=== PATIENT | male | born 2000 | race Caucasian/White ===

== ENCOUNTER 2023-09-07 18:31 | Emergency (ER) | payer BC, SELFPAY ==
[2023-09-07 18:44] VITALS: BP 136/91; PULSE 82; RESP 18; TEMP 36.7; O2SAT 98; BMI 21.7
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
[2023-09-07 18:58] LABS: Microscopic, Urine URINE MICROSCOPIC (MICROSCOPIC)
[2023-09-07 18:59] LABS: Appearance,Urine CLEAR (Clear); Blood, Urine Negative (Negative); Color,Urine YELLOW (Yellow); Glucose,Urine (UA) Negative (Negative); Ketones,Urine TRACE (Negative); Leukocyte Esterase,Urine Negative (Negative); Nitrate,Urine Negative (Negative); Protein,Urine Negative (Negative); Specific Gravity, Urine >= 1.030 (1.005-1.030)
[2023-09-07 19:04] LABS: Bilirubin,Urine 1+ (Negative)
[2023-09-07 19:12] LABS: Bacteria,Urine 1+ /lpf; Calcium Oxalate Crystals,Urine 1+ /lpf; Mucus,Urine 1+ /lpf; Squamous Epithelial Cell,Urine Occasional #/hpf (0-5)
--- NOTE | 2023-09-07 19:12 | PC.NURSE ---
post void residual is 9ml
[2023-09-07 20:11] VITALS: BP 121/70; PULSE 76; RESP 19; TEMP 36.7; O2SAT 100
== END 2023-09-07 20:15 | disposition home or self-care (01) ==
PROVIDERS: Emergency Provider Emergency Medicine; PCP Nurse Practitioner
DX: N39.41 Urge incontinence (principal); N52.9 Male erectile dysfunction, unspecified; F41.1 Generalized anxiety disorder; F33.9 Major depressive disorder, recurrent, unspecified
CPT/HCPCS: 81001; 99283

== ENCOUNTER 2023-09-24 10:35 | Outpatient (CLI) | payer BC, SELFPAY | END 2023-09-24 23:59 | disposition home or self-care (01) | LOC: RT 10:36 | PROVIDERS: PCP Nurse Practitioner Family; Visit Provider Nurse Practitioner Family | DX: R00.2 Palpitations (principal) | CPT/HCPCS: 93225 ==

== ENCOUNTER 2024-05-15 20:46 | Emergency (ER) | payer BC, SELFPAY ==
[2024-05-15 20:47] VITALS: BP 138/82; PULSE 92; RESP 16; TEMP 36.6; O2SAT 98; BMI 25.0
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
--- NOTE | 2024-05-15 21:21 | US_ITS ---
PROCEDURE INFORMATION: Exam: US Scrotum and US Duplex Artery and Vein, Scrotum, Complete Exam date and time: 05/15/2024 9:45 PM Age: 24 years old Clinical indication: Scrotum pain; Additional info: Left testicular swelling and pain TECHNIQUE: Imaging protocol: Real-time ultrasound of the scrotum. Real-time duplex ultrasound scan of the arterial and venous flow of the scrotum with B-mode, color Doppler flow and spectral waveform analysis. Complete exam. Duplex exam was performed to evaluate for torsion and other vascular conditions. COMPARISON: No relevant prior studies available. FINDINGS: Right testicle: Normal. No mass. Normal arterial and venous waveforms on Doppler. No torsion. Right testicle measures 4.1 x 2.2 x 2.9 cm. Left testicle: No mass. Normal arterial and venous waveforms on Doppler. No torsion. Possible mild increase in vascularity to the left testicle and epididymis compared to the right. Left testicle measures 3.5 x 2.0 x 3.3 cm. A non masslike linear echogenicity noted within the left testicle measuring 4 mm in length by 1 mm in thickness may reflect a macro calcification or some other prominent reflective interface. Small left varicocele. Epididymides: A 3 mm mildly complex epididymal cyst seen in the head of the left epididymis. Right epididymis unremarkable. Scrotum/soft tissues: Moderate-sized left sided varicocele. IMPRESSION: 1. Mildly increased blood flow of the left epididymis and testicle that might reflect epididymal orchitis in the proper clinical setting. 2. Left varicocele and small complex epididymal cyst. 3. Incidental linear echogenicity in the left testicle may reflect a macro calcification or some other reflective interface.
--- NOTE | 2024-05-15 21:26 | HMH.ITSTN ---
Ultrasound called in at this time
--- NOTE | 2024-05-15 21:53 | PC.NURSE ---
pt going with RAD
--- NOTE | 2024-05-15 22:17 | PC.NURSE ---
pt returned from ultrasound
[2024-05-15] MEDS: LIDOCAINE 1% 5ML PF VIAL IM (23:06)
[2024-05-15] MEDS: cefTRIAXone 500MG VIAL 500 MG IM (23:06)
--- NOTE | 2024-05-15 23:09 | PC.NURSE ---
collected urine sample sent to lab.
[2024-05-15 23:13] LABS: Appearance,Urine CLEAR (Clear); Blood, Urine Negative (Negative); Color,Urine YELLOW (Yellow); Glucose,Urine (UA) Negative (Negative); Ketones,Urine Negative (Negative); Leukocyte Esterase,Urine Negative (Negative); Microscopic, Urine URINE MICROSCOPIC (MICROSCOPIC); Nitrate,Urine Negative (Negative); PH,Urine 6.5 (5.0-8.5); Protein,Urine 1+ (Negative); Specific Gravity, Urine >= 1.030 (1.005-1.030)
[2024-05-15 23:20] LABS: Bilirubin,Urine Negative (Negative)
[2024-05-15 23:27] LABS: Bacteria,Urine 2+ /lpf; Mucus,Urine 4+ /lpf; WBC,Urine TNTC #/hpf (0-3)
[2024-05-15 23:30] VITALS: BP 140/79; PULSE 77; RESP 17; TEMP 36.7; O2SAT 96
== END 2024-05-15 23:31 | disposition home or self-care (01) ==
PROVIDERS: Emergency Provider Student in an Organized Health Care Education/Training Program; PCP Nurse Practitioner Family
DX: N45.3 Epididymo-orchitis (principal); N50.812 Left testicular pain
CPT/HCPCS: 76870; 81001; 87086; 96372; 99283; J0696

== ENCOUNTER → 2024-08-10 07:28 | Outpatient (CLI) | payer BC, SELFPAY | LOC: SL 07:30 | PROVIDERS: PCP Specialist; Visit Provider Specialist | DX: G47.30 Sleep apnea, unspecified (principal) | CPT/HCPCS: G0399 ==

== ENCOUNTER 2024-11-18 17:38 | Emergency (ER) | payer BC, SELFPAY ==
--- OUTSIDE RECORDS SUMMARY | 2024-09-04 05:01 | XMS_ITS | Continuity of Care Document ---
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 Name Role Phone Zafar MSN, WOOL SAMPLER, [place] Unavailable Unavai lable Allergies, Adverse Reactions, Alerts Substance Reaction Status Criticality No Known Allergies Active No Inform ation Medications Medication Instructions Dosage Effective Dates (start - stop) Status Comments Prozac 20 mg capsule take 1 capsule by o ral route every day in the morning 20 MG - Active tenofovir disoproxil fumarate 300 mg tablet take 1 tablet by oral route every day with a meal 300 MG - Active buspirone 10 mg tablet take 1 tablet by oral route 3 times every day 10 MG - Active tadalafil 5 mg tablet take 1 tablet by o ral route every day 5 MG - Active VITAMIN D2 50,000IU (ERGO) CAP RX TAKE 1 CAPSULE BY MOUTH EVERY WEEK ON SAME DAY EACH WEEK - Active Advance Directives Directive Yes / No Effective Date File Name No Information Encounters Encounter Description Practice Location Reason(s) For Visit Diagnoses Date Provider [facility], [address] [place], [address], [place] tel:[phone] [facility] MARIUM GUILLERMO No Information Zafar Toledo. [address] [place] [address], [id number] , . [phone] [facility], [address] [place], [address], tel:[phone] [facility] f/u medication (chief complaint) Generalized Anxiety DisorderMajor depressive disorder, recurrent, mildBody mass index [BMI] 25.0-25.9, adult Aug- 5 Stephen Paris. [address], [place], [id number] , . tel: [phone] [facility], [address] [place] [address], [facility], tel:[phone] [facility] [place] Follow up on Medication (chief complaint) Body mass index [BMI] 24.0-24.9, adultGeneralized Anxiety DisorderMajor depressive disorder, recurrent, mildVitamin B12 deficiencyEncounter for HIV pre-exposure prophylaxis 5 Stephen Paris. [address], [place], [id number] , . tel: [phone] [facility], [address] [place] [address], [facility], tel:[phone] [facility] [place] FMLA papers/accomm odation request (chief complaint) Stress, not elsewhere classifiedGeneralized Anxiety DisorderEncounter for issue of other medical certificate 5 Stephen Paris. [address], [place], [id number] , . tel: [phone] [address], [facility], tel:[phone] [facility] [place] fasting labs (chief complaint)anx iety issues (chief complaint) Vitamin B12 deficiencyGeneralized Anxiety DisorderMajor depressive disorder, recurrent, mildEncounter for immunizationBody mass index [BMI] 25.0-25.9, adult 5 Stephen Paris. [address], [place], [id number] , . tel: [phone] [facility], [address] [place] [address], [address], [place] tel:[phone] [facility] [place] No Information 4 Stephen Paris. [address], [place], [id number] , [place]. tel:[phone] [facility], [address] [place] [address], [facility], tel:[phone] [facility] No Information 4 Albert Moncada. [address] [place], [id number] , [place]. tel:[phone] [facility], [address] [place] [address], [facility], tel:[phone] [facility] [place] Fatigue (chief complaint)Con cerned about sleep apnea. (chief complaint)sor e throat (chief complaint) FatigueApnea, not elsewhere classifiedPharyngitisS noringBody mass index [BMI] 24.0-24.9, adultEncounter for screening for COVID-19 4 Stephen Paris. [address], [place], [id number] , [place]. tel:[phone] [facility], [address] [place] [address], [facility], [place] tel:[phone] [facility] [place] B12 Injection (chief complaint) Vitamin B12 deficiency 4 Stephen Paris. [address], [place], [id number] , [place]. tel:[phone] [facility], [address] [place] [address], [facility], [place] tel:[phone] [facility] [place] B12 INJECTION (chief complaint) Vitamin B12 deficiency 0 4 Stephen Paris. [address], [place], [id number] , [place]. tel:[phone] [facility], [address] [place] [address], [facility], tel:[phone] [facility] [place] b12 injection (chief complaint) Vitamin B12 deficiency 4 Stephen Paris. [address], [place], [id number] , . tel: [phone] [facility], [address] [place] [address], [facility], tel:[phone] [facility] [place] F/u on testing (chief complaint)b12 injection # 3 of 6 (chief complaint)kym h on rt wrist (chief complaint) Body mass index [BMI] 22.0-22.9, adultTachycardia, unspecifiedVitamin B12 deficiencyRash - 4 Stephen Paris. [address], [place], [address] [place] [address] , . tel: [phone] [facility], [address] [place] [address], [facility], tel:[phone] [facility] [place] B12 INJECTION (chief complaint) Vitamin B12 deficiency 4 Stephen Paris. [address] [place] [address], [id number] , . tel: [phone] [facility], [address] [place] [address], [facility], tel:[phone] [facility] [place] f/u labs (chief complaint) PalpitationsVitamin B12 deficiencyBody mass index [BMI] 22.0-22.9, adultGeneralized Anxiety Disorder Aug-3 0- 4 Stephen Paris. [address] [place] [address], [id number] , . tel: [phone] [facility], [address] [place] [address], [facility], tel:[phone] [facility] Establishing Care (chief complaint) Extreme povertyUnemployment, unspecifiedEncounter for screening for diseases of the blood and blood-forming organs and certain disorders involving the immune mechanismBody mass index [BMI] 21.0-21.9, adultGeneralized Anxiety DisorderMajor depressive disorder, recurrent, mildEncounter for screening for diabetes mellitusEncounter for screening for human immunodeficiency virus [HIV]Encounter for screening for other viral diseases 4 Milangabriela Moncada. [address] [place], [id number] , [place]. [phone] Family History Family Member Type Diagnosis Age At Onset Maternal grandmother Problem Seasonal Allergies a nd Parkinson's Disease Father Problem Substance Abuse Mother Problem Substance Abuse, Fibromyalgia, Gout,Brain Tumor, COPD, CHF Father Problem Alive and well Maternal grandfather Problem Heart Issues, Aneury sm in abdomin Paternal grandfather Problem Alive and well Maternal grandmother Problem Alive and well Paternal grandfather Problem Large Hernia Mother Problem Arthritis Father Problem Hernia Maternal grandfather Problem Alive and well Immunizations Vaccine Date Status Comments SARS-COV-2 (COVID-19) vaccin e, mRNA, spike protein, LNP, bivalent booster, preservative free, 50 mcg/0.5 mL or 25 mcg/0.25 mL dose (Moderna) refused Source: New I mmunization Record Influenza virus vaccine, trivalent (IIV3), split virus, preservative free, 0.5 mL dosage, for intramuscular use administered Source: Ne w Immunization Record COVID-19 mRNA (PFR) administered Source: Other Registry COVID-19 mRNA (PFR) administered Source: Other Registry Varicella administered Source: Other R egistry Tdap, Adsorbed administered Source: Other Registry MCV4 UF administered Source: Other R egistry MMR administered Source: Other R egistry DTaP, UF administered Source: Other R egistry Polio-IPV administered Source: Other R egistry Varicella administered Source: Other R egistry DTaP, UF administered Source: Other R egistry Hib-Hep B (Comvax) administered Source: O ther Registry Polio-IPV administered Source: Other R egistry MMR administered Source: Other R egistry DTaP, UF administered Source: Other R egistry Hib-Hep B (Comvax) administered Source: O ther Registry Polio-IPV administered Source: Other R egistry DTaP, UF administered Source: Other R egistry Hib-Hep B (Comvax) administered Source: O ther Registry Polio-IPV administered Source: Other R egistry DTaP, administered Source: Other R egistry Payers Payer name Insurance type Covered constitution party ID Shayne quinonez(s) [place] [employer] [place] BL [id number] [facility]- Medicaid [place] [id number] [facility]- Medicaid Aetna Wrap Payer [id number] [employer] [facility] [id number] [facility]- Medicaid [employer] BL [id number] [facility]- Medicaid [employer] Wrap Payer [id number] 1 [employer] [facility] [id number] [facility]- Medicaid [employer] BL [id number] [facility]- Medicaid [place] Wrap Payer [id number] 1 Social History Type Description Quantity Date Captured Comments Alcohol Use Details Unknown Caffeine Use Details Unknown Tobacco Use Status No Information Smoking Status No Information Sex Male Sexual Orientation Bisexual Gender Identity Male Chief Complaint And Reason For Visit No Information Plan Of Treatment Date Type Action Status Goal CMP. Due on due Goal Diabetes screening. Due on due Goal Vitamin B12. Due on 026 due Goal Hepatitis C Screening due Goal Depression screening. Due on due Goal Follow up Plan f or abnormal BMI (Less than 18.5, greater than 25). Due on due Goal CBC. Due on due Goal Influenza vaccine. Due on due Goal Drug Abuse Scree sumeet Test (DAST-10). Due on due Goal Tobacco screening. Due on due Goal Generalized Anxi ety Disorder - 7 (NICOLE-7). Due on due Goal Tobacco Use Cess ation Counseling. Due on due Goal HIV screen due Goal Unhealthy drug use screening due Goal Tobacco Use Screening. Due o n due Goal Obtain Height, Weight, and B HI. Due on due Goal Lipid panel. Due on due Goal Vitamin D. Due on due Goal Lipid panel. Due on due Goal Hepatitis C Screening due Goal CBC. Due on due Goal Follow up Plan f or abnormal BMI (Less than 18.5, greater than 25). Due on due Goal Tobacco screening. Due on due Goal Vitamin D. Due on due Goal Tobacco Use Screening. Due o n due Goal Influenza vaccine. Due on due Goal Obtain Height, Weight, and B HI. Due on due Goal Depression screening. Due on due Goal Diabetes screening. Due on due Goal Drug Abuse Scree sumeet Test (DAST-10). Due on due Goal Unhealthy drug use screening due Goal CMP. Due on due Goal Tobacco Use Cess ation Counseling. Due on due Goal Generalized Anxi ety Disorder - 7 (NICOLE-7). Due on due Goal Vitamin B12. Due on due Goal HIV screen due Goal Lifestyle education regardin g diet completed Goal Tobacco screening. Due on due Goal Vitamin B12. Due on due Goal Influenza vaccine. Due on due Goal Unhealthy drug use screening due Goal Vitamin D. Due on due Goal Lipid panel. Due on due Goal Follow up Plan f or abnormal BMI (Less than 18.5, greater than 25). Due on due Goal Hepatitis C Screening due Goal Tobacco Use Cess ation Counseling. Due on due Goal Generalized Anxi ety Disorder - 7 (NICOLE-7). Due on due Goal CBC. Due on due Goal Tobacco Use Screening. Due o n due Goal Depression screening. Due on due Goal Drug Abuse Scree sumeet Test (DAST-10). Due on due Goal Diabetes screening. Due on due Goal Obtain Height, Weight, and B HI. Due on due Goal HIV screen due Goal CMP. Due on due Goal Lifestyle education regardin g diet completed Goal CMP. Due on due Goal Vitamin B12. Due on due Goal Lipid panel. Due on due Goal Tobacco Use Cess ation Counseling. Due on due Goal Follow up Plan f or abnormal BMI (Less than 18.5, greater than 25). Due on due Goal Vitamin D. Due on due Goal Depression screening. Due on due Goal HIV screen due Goal Diabetes screening. Due on due Goal Tobacco Use Screening. Due o n due Goal Drug Abuse Scree sumeet Test (DAST-10). Due on due Goal Generalized Anxi ety Disorder - 7 (NICOLE-7). Due on due Goal Influenza vaccine. Due on due Goal Obtain Height, Weight, and B HI. Due on due Goal Unhealthy drug use screening due Goal CBC. Due on due Goal Hepatitis C Screening due Goal Tobacco Use Screening. Due o n due Goal Hepatitis C Screening due Goal Obtain Height, Weight, and B HI. Due on due Goal Vitamin D. Due on due Goal Follow up Plan f or abnormal BMI (Less than 18.5, greater than 25). Due on due Goal Vitamin B12. Due on 026 due Goal Drug Abuse Scree sumeet Test (DAST-10). Due on due Goal CMP. Due on due Goal Depression screening. Due on due Goal CBC. Due on due Goal Lipid panel. Due on due Goal HIV screen due Goal Generalized Anxi ety Disorder - 7 (NICOLE-7). Due on due Goal Unhealthy drug use screening due Goal Influenza vaccine. Due on due Goal Tobacco Use Cess ation Counseling. Due on due Goal Diabetes screening. Due on F due Goal Lifestyle education regardin g diet completed Goal Drug Abuse Scree sumeet Test (DAST-10). Due on due Goal Depression screening. Due on due Goal Lipid panel. Due on due Goal Unhealthy drug use screening due Goal HIV screen due Goal Vitamin B12. Due on 025 due Goal Generalized Anxi ety Disorder - 7 (NICOLE-7). Due on due Goal Vitamin D. Due on due Goal CBC. Due on due Goal Hepatitis C Screening due Goal Tobacco Use Cess ation Counseling. Due on due Goal CMP. Due on due Goal Tobacco Use Screening. Due o n due Goal Influenza vaccine. Due on Oc due Goal Diabetes screening. Due on A due Goal Obtain Height, Weight, and B HI. Due on due Goal Follow up Plan f or abnormal BMI (Less than 18.5, greater than 25). Due on due Goal Vitamin B12. Due on due Goal Lipid panel. Due on 039 due Goal Obtain Height, Weight, and B HI. Due on due Goal Influenza vaccine. Due on due Goal CBC. Due on due Goal Vitamin D. Due on due Goal Generalized Anxi ety Disorder - 7 (NICOLE-7). Due on due Goal Hepatitis C Screening due Goal Tobacco Use Screening. Due o n due Goal Follow up Plan f or abnormal BMI (Less than 18.5, greater than 25). Due on due Goal CMP. Due on due Goal Diabetes screening. Due on A due Goal Tobacco Use Cess ation Counseling. Due on due Goal Drug Abuse Scree sumeet Test (DAST-10). Due on due Goal Unhealthy drug use screening due Goal Depression screening. Due on due Goal HIV screen due Goal Lifestyle education regardin g diet completed Goal Influenza vaccine. Due on due Goal CBC. Due on due Goal Lipid panel. Due on 039 due Goal HIV screen due Goal Diabetes screening. Due on A due Goal Drug Abuse Scree sumeet Test (DAST-10). Due on due Goal CMP. Due on due Goal Follow up Plan f or abnormal BMI (Less than 18.5, greater than 25). Due on due Goal Unhealthy drug use screening due Goal Tobacco Use Screening. Due o n due Goal Depression screening. Due on due Goal Tobacco Use Cess ation Counseling. Due on due Goal Vitamin B12. Due on 025 due Goal Obtain Height, Weight, and B HI. Due on due Goal Hepatitis C Screening due Goal Vitamin D. Due on due Goal Generalized Anxi ety Disorder - 7 (NICOLE-7). Due on due Goal Tobacco Use Screening. Due o n due Goal Generalized Anxi ety Disorder - 7 (NICOLE-7). Due on due Goal CMP. Due on due Goal Unhealthy drug use screening due Goal Depression screening. Due on due Goal Follow up Plan f or abnormal BMI (Less than 18.5, greater than 25). Due on due Goal Obtain Height, Weight, and B HI. Due on due Goal Vitamin B12. Due on due Goal HIV screen due Goal Diabetes screening. Due on A due Goal Lipid panel. Due on due Goal Hepatitis C Screening due Goal CBC. Due on due Goal Influenza vaccine. Due on due Goal Vitamin D. Due on due Goal Drug Abuse Scree sumeet Test (DAST-10). Due on due Goal Tobacco Use Cess ation Counseling. Due on due Goal Diabetes screening. Due on A due Goal CMP. Due on due Goal Hepatitis C Screening due Goal Influenza vaccine. Due on due Goal Generalized Anxi ety Disorder - 7 (NICOLE-7). Due on due Goal Follow up Plan f or abnormal BMI (Less than 18.5, greater than 25). Due on due Goal Vitamin D. Due on due Goal HIV screen due Goal Drug Abuse Scree sumeet Test (DAST-10). Due on due Goal Tobacco Use Screening. Due o n due Goal Lipid panel. Due on due Goal Vitamin B12. Due on due Goal Unhealthy drug use screening due Goal Depression screening. Due on due Goal Tobacco Use Cess ation Counseling. Due on due Goal Obtain Height, Weight, and B HI. Due on due Goal CBC. Due on due Goal Follow up Plan f or abnormal BMI (Less than 18.5, greater than 25). Due on due Goal Depression screening. Due on due Goal Influenza vaccine. Due on due Goal Hepatitis C Screening due Goal Unhealthy drug use screening due Goal Lipid panel. Due on 039 due Goal CBC. Due on due Goal Obtain Height, Weight, and B HI. Due on due Goal Tobacco Use Screening. Due o n due Goal HIV screen due Goal Tobacco Use Cess ation Counseling. Due on due Goal Diabetes screening. Due on A due Goal Vitamin D. Due on due Goal CMP. Due on due Goal Drug Abuse Scree sumeet Test (DAST-10). Due on due Goal Generalized Anxi ety Disorder - 7 (NICOLE-7). Due on due Goal Vitamin B12. Due on due Goal Lifestyle education regardin g diet completed Goal Vitamin B12. Due on due Goal Depression screening. Due on due Goal Tobacco Use Cess ation Counseling. Due on due Goal Diabetes screening. Due on A due Goal Unhealthy drug use screening due Goal Drug Abuse Scree sumeet Test (DAST-10). Due on due Goal Follow up Plan f or abnormal BMI (Less than 18.5, greater than 25). Due on due Goal CMP. Due on due Goal Lipid panel. Due on 039 due Goal Influenza vaccine. Due on due Goal Tobacco Use Screening. Due o n due Goal CBC. Due on due Goal Hepatitis C Screening due Goal Vitamin D. Due on due Goal HIV screen due Goal Obtain Height, Weight, and B HI. Due on due Goal Generalized Anxi ety Disorder - 7 (NICOLE-7). Due on due Goal Depression screening. Due on due Goal Obtain Height, Weight, and B HI. Due on due Goal CMP. Due on due Goal Follow up Plan f or abnormal BMI (Less than 18.5, greater than 25). Due on due Goal Diabetes screening. Due on A due Goal Tobacco Use Screening. Due o n due Goal Unhealthy drug use screening due Goal HIV screen due Goal Tobacco Use Cess ation Counseling. Due on due Goal Hepatitis C Screening due Goal Influenza vaccine. Due on Ap -30-2024 due Goal Vitamin B12. Due on due Goal CBC. Due on due Goal Vitamin D. Due on due Goal Lipid panel. Due on due Goal Generalized Anxi ety Disorder - 7 (NICOLE-7). Due on due Goal Drug Abuse Scree sumeet Test (DAST-10). Due on due Goal Lifestyle education regardin g diet completed Goal Diabetes screening. Due on A due Goal Influenza vaccine. Due on due Goal CBC. Due on due Goal Hepatitis C Screening due Goal Unhealthy drug use screening due Goal Depression screening. Due on due Goal Tobacco Use Screening. Due o n due Goal Vitamin D. Due on due Goal Vitamin B12. Due on due Goal Lipid panel. Due on due Goal Generalized Anxi ety Disorder - 7 (NICOLE-7). Due on due Goal HIV screen due Goal CMP. Due on due Goal Obtain Height, Weight, and B HI. Due on due Referral Referred To: April Yo APRN [facility] [place], [place], [id number] Ordered: Referrals: Psychiatry. April Yo APRN. Location: [facility]. Evaluate and treat Appointment date/timeframe: 08/28/2024 ordered Referral Referred To: Ana [facility] Ordered: Referrals: Nephrology. Ana [facility]. Location: [place]. Evaluate and treat Appointment date/timeframe: 04/30/2024 ordered Referral Referred To: [facility] Ordered: Referrals: Cardiology. [facility]. Location: [place]. Diagnostic testing Appointment date/timeframe: 1 Day ordered Appointment Lc Greenberg - Labs (Fas ting) BOOKED History Of Present Illness Encounter Date Complaint History Of Prese nt Illness f/u medication Follow up on Med ication Lc is here today to follow up on medication. At his last visit, he reported that the buspirone adjustment has been great. His anxiety is so much better. The increased dose of prozac, has caused a few episodes of feeling flat, no emotion. Today he reports the episodes have continued and are in the afternoon, but feels the increase may be a little too much. He has dropped back to 20 mg daily. Wants to continue this dose for now, and would like to have referral to [facility] for medication management w/ April Yo APRN.He did not start his Prep medicationupon starting medication will need to rtc in 6 months for labs.He verbalized understanding. Follow up on Medication Lc is here today to follow up on medication. Pt reports that the buspirone adjustment has been great. Pt reports his anxiety is so much better. The increased dose of prozac, has caused a few episodes of feeling flat, no emotion. Encourage him to continue for a few more weeks to see if it levels out. He is agreeable.Due for eye exam- reports having a floater in left eye but only lasted a few minutes.Would liked to start prep- labs ok, sTD screening negMultiple partners, both female and male.discussed that prep is only for prevention and we will repeat labs in 6 monthsbaseline labs wnl [facility] papers/accommodation reques t Lc is here today for another form completion for his work to have work accommodation- to not operate heavy machinery/driving.At our last visit, he states it has gotten worse in the past months. Lc reported some issues with a co-worker and his current work situation contributing to increased anxiety and panic attacks. He feels there is one particular employee that is making the work environment at higher risk for accidents. 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 He reports at least two panic attacks last week causing chest tightness and hyperventilation, where he has had to sit for a while to regain control of his anxiety. He reports it is so bad he is considering changing positions at [employer]. When his panic is so bad he is unable to think clearly and has delayed reaction times to situations. He is fearful this may injure himself or others.End of Feb, grandfather and sister both . Father also had heart attack. Increased acrophobia Prozac was increased to 40 mg daily and I added 10 mg of buspirone tid, as needed. I would like him to at least take it bid, and utilize the third dose as needed.I recommend that for his and others' safety he be accommodated to not drive or operate heavy machinery while at work r/t his acute anxiety.Forms were completed and given to pt- copies made for chart. fasting labs Lc is here today for fasting lab collection.Missed his appt on 07/07/24.Labs collected- non- fasting though.Due for flu vaccine as well.Administered, tolerated well. anxiety issues Lc is also here for his anxiety.He states it has gotten worse in the past months. Current dose of prozac 20 mg - previously written by Emiliana Lai, licensed mental health counselor at [facility], has not been working as well. Lc is changing therapist to one at his work and has asked me to manage his anxiety as his PCP. He no longer wishes to see Mrs. Lai r/t what he says personality conflict. Lc reports that he has had some issues with a co-worker and his current work situation contributing to increased anxiety and panic attacks. He feels there is one particular employee that is making the work environment at higher risk for accidents. 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 He reports at least two panic attacks last week causing chest tightness and hyperventilation, where he has had to sit for a while to regain control of his anxiety. He reports it is so bad he is considering changing positions at [employer]. End of Feb, grandfather and sister both . Father also had heart attack. Increased acrophobia Currently on Lc is taking 20 mg prozac. I am increasing to 40 mg dialy and adding 10 mg of buspirone tid, as needed. I would like him to at least take it bid, and utilize the third dose as needed.Wants to start PREP- will discuss at next f/u visit after lab results are in. sore throat Symptoms are ass ociated with history of allergies. Symptoms are not associated with dental infection, exposure to strep and history of asthma. Associated symptoms include fatigue, otalgia and pharyngitis. Pertinent negatives include cough, dyspnea, fever, headache, rash, sinus pressure or wheezing. Concerned about sleep apnea. Pt states that over the last two months, he has been told that he is snoring and frequently stops breathing in his sleep, states smart watch tells him O2 sat drops to 82% when sleeping at times. Pt concerned he may have sleep apena.Would like to possibly discuss a sleep study.Denies external medical visits. Fatigue The symptoms beg an 1 week ago. The client presents with nausea. Additional information: Edema of lymph nodes on left side of neck. B12 Injection Lc is here today to receive b12 injection #6 of 6. Administered into right deltoid. Pt tolerated well, band aid applied. Pt has completed the 6 week series of B12 injections and will now move on to monthly b12 injections. Pt is scheduled to rtc in 1 month. B12 INJECTION LC IS HERE TODAY TO RECEIVE B12 INJECTION #5 OF 6. ADMINISTERED INTO RT DELTOID, PT TOLERATED WELL, BAND AID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
--- OUTSIDE RECORDS SUMMARY | 2024-11-17 20:30 | XMS_ITS | Encounter Summary ---
Author Organization [facility] Address [address] [place] [address] Phone CareEverywhereSuppor [email or web address] Care Team Providers Care Harness Worker Name Role Phone Unavailable Primary Care Provider Unavailabl e Reason for Visit * Reason Comments Health Center Offerings Encounter Details Date Type Department Care Team (Latest Contact Info) Description 11/17/2024 8:30 PM EDT Clinical Support TIMOTEO Menezes 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 RTW tomorrow if resolved, o/w RTC with release to RTW note. documented in this encounter Progress Notes * RODOLFO Santiago - 11/17/2024 8:30 PM EDT Subjective Chris Greenberg is a 24 y.o. male. WD ID: [id number] Employer: [employer] Center: [id number] Shift: 2 Full-time GL and #: Mandy Carter Responded to tones dropped for LH/D in 250. Onset: ~1914 Symptoms: chest tightness, SOA, dizziness, weakness in BUE Transported TM back to [place] [address] via [employer] without stretcher. Notes: on arrival to scene [...] cardiac disease. TM agreeable to transport to [place] [address] for eval. On arrival to clinic EKG [...] and discussed limitations of testing available at [facility]. RTW tomorrow if resolved, o/w RTC with [...]
[2024-11-18] VITALS (8 sets, daily range): BP systolic 120–152; BP diastolic 71–92; PULSE 60–87; RESP 12–16; TEMP 36.4–37.1; O2SAT 92–97; BMI 25.0
--- NOTE | 2024-11-18 17:40 | ECG_ITS ---
APPROVED REPORT Exam: Resting ECG HR:86 bpm ECG Measurements Heart Rate 86 AXES CO 120 P 39 QRSd 90 QRS 77 QT 339 T 63 QTc 383 Conclusion SINUS RHYTHM NORMAL ECG UNCONFIRMED REPORT Electronically signed by : SHAAN MALIK, 11/19/2024 06:13:55
--- OUTSIDE RECORDS SUMMARY | 2024-11-18 17:48 | XMS_ITS | Encounter Summary ---
Author Organization [facility] Address [address] [place] [address] Phone CareEverywhereSuppor [email or web address] Care Team Providers Care Slag Dumper Name Role Phone Unavailable Primary Care Provider Unavailabl e Encounter Details Date Type Department Care Team (Late st Contact Info) Description 09/02/[address] [place] [address] Kaity Scherer, RN [address] [place] [address] Social History Tobacco Use Types Packs/Day Years Used Date Smoking Tobacco: Never Smokeless Tobacco: Never Depression Answer Date Recorded PHQ Total Score 1 09/02/2024 Stress Answer Date Recorded Stress in your Life Not on file 04/02/2024 Dealing with Stress 3 04/02/2024 Sex and Gender Information Value Date Recorded Sex Assigned at Not on file 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
--- OUTSIDE RECORDS SUMMARY | 2024-11-18 17:48 | XMS_ITS | Encounter Summary ---
Author Organization [facility] Address [address] [place] [address] Phone CareEverywhereSuppor Care Team Providers Care Automotive Drivability Technician Name Role Phone Unavailable Primary Care Provider Unavailabl e Reason for Visit * Reason Onset Date Comments Education Provided 09/30/2024 Encounter Details Date Type Department Care Team (Late st Contact Info) Description 09/30/2024 Documentation [facility] Safety Ergo [address] [place] [address] Arsen Roca [address] [place] [address] Social History Tobacco Use Types Packs/Day Years Used Date Smoking Tobacco: Never Smokeless Tobacco: Never Depression Answer Date Recorded PHQ Total Score 1 09/02/2024 Stress Answer Date Recorded Stress in your Life Not on file 04/02/2024 Dealing with Stress 3 04/02/2024 Sex and Gender Information Value Date Recorded Sex Assigned at Not on file 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
--- OUTSIDE RECORDS SUMMARY | 2024-11-18 17:48 | XMS_ITS | Encounter Summary ---
Author Organization [facility] Address [address] [place] [address] Phone CareEverywhereSuppor [email or web address] Care Team Providers Care Air Brake Rigger Name Role Phone Unavailable Primary Care Provider Unavailabl e Reason for Visit * Reason Onset Date Comments Education Provided 11/02/2024 Line call Encounter Details Date Type Department Care Team (Late st Contact Info) Description 11/02/2024 Documentation [facility] Safety Ergo [address] [place] [address] Arsen Roca [address] [address] Social History Tobacco Use Types Packs/Day Years Used Date Smoking Tobacco: Never Smokeless Tobacco: Never Depression Answer Date Recorded PHQ Total Score 1 09/02/2024 Stress Answer Date Recorded Stress in your Life Not on file 04/02/2024 Dealing with Stress 3 04/02/2024 Sex and Gender Information Value Date Recorded Sex Assigned at Not on file 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 documented in this encounter Plan of Treatment Not on file documented as of this encounter Visit Diagnoses Not on filedocumented in this encounter
--- OUTSIDE RECORDS SUMMARY | 2024-11-18 17:48 | XMS_ITS | Clinical Summary ---
Author Organization [facility] Address [address] [place] [address] Phone CareEverywhereSuppor [email or web address] Care Team Providers Care Automotive Technology Instructor Name Role Phone Unavailable Primary Care Provider Unavailabl e Allergies No known active allergies Medications tadalafil (CIALIS) 5 MG tablet Take 5 mg by mouth 1 (one) time each day. 04/27/2024 Active ergocalciferol (VITAMIN D2) 1.25 MG (51369 UT) capsule TAKE 1 CAPSULE BY MOUTH EVERY WEEK ON SAME DAY EACH WEEK 06/11/2024 Active busPIRone (BUSPAR) 10 MG tablet Take 10 mg by mouth in the morning and 10 mg at noon and 10 mg in the evening. 07/15/2024 Active FLUoxetine (PROzac) 40 MG capsule TAKE 1 CAPSULE BY MOUTH EVERY DAY IN THE MORNING 07/15/2024 Active Active Problems No known active problems Encounters Date Type Department Care Team Description 11/17/2024 8:30 PM EDT [facility] [place] [facility] [address] [place] [address] Luana Miranda PA Chest pain, unspecified type (Primary Dx); Dizziness; Tonsillitis 11/02/2024 Documentation [facility] Safety Ergo [address] [place] [address] Arsen Roca 09/30/2024 Documentation [facility] Safety Ergo [address] [place] [address] Arsen Roca 09/30/2024 Documentation [facility] Safety Ergo [address] [place] [address] Arsen Roca 09/02/2024 12:00 PM EDT Office Visit [place] [address] Clinic [address] [place] [address] Luana Miranda PA Encounter for fitness for duty examination (Primary Dx); History of anxiety 09/02/2024 Telephone [facility] [address] [facility] [address] [place] [address] Rosanne Pyle, MANISHA 09/02/[address] [place] [address] Kaity Scherer, MANISHA 09/01/[address] [place] [address] Jessica Mcfadden, MANISHA 09/01/[address] [place] [address] Hayley Cespedes, EMT from Last 3 Months Social History Tobacco Use Types Packs/Day Years [...] on file 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 Gender Identity Not on file Sexual Orientation Not on file Last Filed Vital Signs Vital Sign Reading Time Taken Comments Blood Pressure 130/89 11/17/2024 7:45 PM EDT Pulse 90 11/17/2024 7:45 PM EDT Temperature 36.8 C (98.2 F) 07/20/2024 5:28 AM EST Respiratory Rate 18 09/02/2024 11:34 AM EDT Oxygen Saturation 96% 11/17/2024 7:45 PM EDT Inhaled Oxygen Concentration - - Weight 84.8 kg (187 lb) 06/19/2024 8:47 AM EST Height 182.9 cm (6') 06/19/2024 8:47 AM EST Body Mass Index 25.36 06/19/2024 8:47 AM EST Plan of Treatment Health Maintenance Due Date Last Done Comments Dental Cleaning/Exam 1999 HIV Screening 1999 Hepatitis C Screening 1999 HPV Immunization (1 - Male 3-dose series) 2014 Hep B Infection Screening - Triple Screen 2017 Pneumococcal: Ped (0 to 5 Yrs) and At-Risk Member (6 to 64 Yrs) (1 of 2 - PCV) 2018 Tetanus Diphtheria and Pertussis Immunization (7 - Td or Tdap) 09/22/2022 09/22/2012, 04/29/2003, 01/28/2002, Additional history exists Covid-19 Immunization ( season) 2024 02/16/2021, 01/15/2021 Annual Preventive Exam 06/27/2024 06/27/2023 HIB Immunization Completed 11/26/2001, , 1999 Hepatitis B Immunization Completed 002, 1999, 1999 Polio Immunization Completed 04/29/2003, 0 11/26/2001, 11/26/2001, Additional history exists Meningococcal Immunization Aged Out 09/22/2012 N o longer eligible based on patient's age to complete this topic Varicella Immunization Completed 09/22/2012, 2001 Influenza Immunization Completed 07/15/2024 Hepatitis A Immunization Aged Out No longer eligible based on patient's age to complete this topic Men B Immunization Aged Out No longer eligible based on patient's age to complete this topic Procedures Procedure Name Priority Date/Time Associated Diagnosis Comments ECG 12-LEAD Routine 11/17/2024 9:06 PM EDT Chest pain, unspecified type POCT RAPID STREP A Routine 11/17/2024 8: 42 PM EDT Chest pain, unspecified type POCT GLUCOSE Routine 11/17/2024 8:25 PM EDT Dizziness from Last 3 Months Results * ECG 12 lead (11/17/2024 9:06 PM EDT) Luana Medellin PA - 11/17/2024 9:06 PM EDT NSR: HR 66 Luana REYNOLDS ECG ORDERABLES Final Result * POCT Rapid Strep A (11/17/2024 8:42 PM EDT) STREP A, POC Negative Negative, Inconclusive Strep A, POC IQC Yes, verified internal control performed correctly. Lot Number [id number] Expiration Date 01/02/2025 Swab 11/17/2024 8:42 PM EDT Luana REYNOLDS POINT OF CARE TEST ORDERABLE S Final Result * POCT glucose (11/17/2024 8:25 PM EDT) Glucose, POC 74 65 - 99 mg/dL Glucose (Glucometer), POC IQC Yes, verified internal control performed correctly. Lot Number er1 Expiration Date er1 Blood (Blood, Capillary) 11/17/2024 8:25 PM EDT Luana REYNOLDS POINT OF CARE TEST ORDERABLE S Final Result from Last 3 Months Insurance OPT OUT NO COPAY NB
--- OUTSIDE RECORDS SUMMARY | 2024-11-18 17:48 | XMS_ITS | Encounter Summary ---
Author Organization [facility] Address [address] [place] [address] Phone CareEverywhereSuppor [email or web address] Care Team Providers Care Stock Analyst Name Role Phone Unavailable Primary Care Provider Unavailabl e Reason for Visit * Reason Onset Date Comments Education Provided 09/30/2024 Line Call Encounter Details Date Type Department Care Team (Late st Contact Info) Description 09/30/[address] 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 documented in this encounter Plan of Treatment Not on file documented as of this encounter Visit Diagnoses Not on filedocumented in this encounter
--- NOTE | 2024-11-18 17:50 | XR_ITS ---
PROCEDURE INFORMATION: Exam: XR Chest Exam date and time: 11/18/2024 6:21 PM Age: 24 years old Clinical indication: Shortness of breath; Additional info: Short of breath TECHNIQUE: Imaging protocol: Radiologic exam of the chest. Views: 1 view. COMPARISON: No relevant prior studies available. FINDINGS: Lungs: No consolidation. Pleural spaces: No pleural effusion. No pneumothorax. Heart/Mediastinum: No cardiomegaly. Bones/joints: Unremarkable. IMPRESSION: No acute findings.
--- NOTE | 2024-11-18 17:50 | CT_ITS ---
PROCEDURE INFORMATION: Exam: CT Head Without Contrast Exam date and time: 11/18/2024 6:20 PM Age: 24 years old Clinical indication: Dizziness; Additional info: Dizzy TECHNIQUE: Imaging protocol: Computed tomography of the head without contrast. Radiation optimization: All CT scans at this facility use at least one of these dose optimization techniques: automated exposure control; mA and/or kV adjustment per patient size (includes targeted exams where dose is matched to clinical indication); or iterative reconstruction. COMPARISON: No relevant prior studies available. FINDINGS: Brain: No acute intracranial hemorrhage, midline shift, or mass effect. Cerebellar tonsils extend 6 mm below the foramen magnum. Cerebral ventricles: No ventriculomegaly. Paranasal sinuses: Right maxillary sinus mucous retention cyst. Mastoid air cells: Visualized mastoid air cells are well aerated. Bones: Unremarkable. No acute fracture. Soft tissues: Unremarkable. IMPRESSION: 1. No acute intracranial findings. 2. Cerebellar tonsils extend 6 mm below the foramen magnum, suggestive of a Chiari 1 malformation.
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
[2024-11-18 17:59] LABS: Basophils % 0.4 % (0.1-2.0); Eosinophils # 0.1 Kmm3 (0.0-0.4); Eosinophils % 1.4 % (0.1-12.0); Hematocrit 39.7 % (42.0-52.0); Hemoglobin 13.1 g/dL (14.1-18.0); Immature Granulocytes # 0.04 10^3uL; Immature Granulocytes % 0.5 %; Lymphocytes # 3.1 K/mm3 (0.7-4.5); Lymphocytes % 36.1 % (10-50); Mean Platelet Volume 8.8 fl (7.4-10.4); Monocytes # 0.5 K/mm3 (0.1-1.0); Monocytes % 6.2 % (1.7-9.3); Neutrophils # 4.7 K/mm3 (1.8-7.8); Neutrophils % 55.4 % (37.0-80.0); Nucleated Red Blood Cells # 0 10^3/uL; Nucleated Red Blood Cells % 0 %; Platelet Count 368 K/mm3 (142-424); Red Blood Count 3.97 M/mm3 (4.60-6.20); Red Cell Distribution Width 15.2 % (11.5-17.5); Red Cell Distribution Width-SD 55.9 fL; White Blood Count 8.4 K/mm3 (4.8-10.8)
[2024-11-18 18:03] LABS: Coronavirus 19, PCR Not Detected (NotDetected); Influenza A, PCR Not Detected (NotDetected); Influenza B, PCR Not Detected (NotDetected)
[2024-11-18 18:19] LABS: Lipase 45 U/L (23-300)
[2024-11-18 18:22] LABS: Alanine Aminotransferase 16 U/L (12-78); Albumin Level 4.8 g/dl (3.5-5.0); Albumin/Globulin Ratio 1.6 (1.1-1.8); Alkaline Phosphatase 51 U/L (38-126); Anion Gap 12.4 mEq/L (5-15); Aspartate Amino Transferase 27 U/L (17-59); Bilirubin,Total 2.9 mg/dl (0.2-1.3); Blood Urea Nitrogen 16 mg/dl (9-20); Calcium 9.9 mg/dl (8.4-10.2); Carbon Dioxide 30 mmol/L (22.0-30.0); Chloride 100 mmol/L (98-107); Creatinine Clearance Estimated 191 mL/min (50-200); Estimated Glomerular Filt Rate 137 ml/min (>60); GFR (African American) 166 ML/MIN (>60); Glucose 113 mg/dl (74-100); Potassium 4.4 mmoL/L (3.5-5.1); Sodium 138 mmol/L (136-145); Total Protein,Serum 7.8 g/dl (6.3-8.2)
[2024-11-18] MEDS: 0.9 % SODIUM CHLORIDE 1000ML 1,000 ML 999 ML IV (18:30)
[2024-11-18 18:33] LABS: NT Pro Brain Natriuretic Pep. 25.6 pg/mL (0-125)
[2024-11-18 18:35] LABS: Troponin I < 0.01 ng/ml (0.00-0.034)
[2024-11-18 18:40] LABS: Microscopic, Urine URINE MICROSCOPIC (MICROSCOPIC)
[2024-11-18 18:46] LABS: Appearance,Urine CLEAR (Clear); Bilirubin,Urine Negative (Negative); Blood, Urine Negative (Negative); Color,Urine YELLOW (Yellow); Glucose,Urine (UA) Negative (Negative); Ketones,Urine Negative (Negative); Leukocyte Esterase,Urine Negative (Negative); Nitrate,Urine Negative (Negative); Protein,Urine Negative (Negative)
[2024-11-18 19:28] LABS: RBC,Urine Occasional #/hpf (0-3); WBC,Urine Occasional #/hpf (0-3)
[2024-11-18 19:29] LABS: Bacteria,Urine 2+ /lpf; Mucus,Urine 1+ /lpf; Squamous Epithelial Cell,Urine Occasional #/hpf (0-5)
[2024-11-18 21:16] LABS: HIV Combo NEGATIVE (Negative)
[2024-11-18 21:26] LABS: Hepatitis C Ab Qual. W/ RFX NEGATIVE (Negative)
== END 2024-11-18 20:40 | disposition home or self-care (01) ==
PROVIDERS: Nurse Practitioner; Emergency Provider Emergency Medicine; PCP Nurse Practitioner Family
DX: R07.89 Other chest pain (principal); G93.5 Compression of brain; R06.02 Shortness of breath; R53.83 Other fatigue; F17.290 Nicotine dependence, other tobacco product, uncomplicated
CPT/HCPCS: 70450; 71045; 80053; 81001; 83690; 83735; 83880; 84484; 85025; 85378; 86803; 87086; 87389; 87636; 93005; 96360; 99285; J7030

== ENCOUNTER 2024-12-03 15:11 | Outpatient (CLI) | payer BC, SELFPAY ==
--- OUTSIDE RECORDS SUMMARY | 2024-11-17 20:30 | XMS_ITS | Encounter Summary ---
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 RTW tomorrow if resolved, o/w RTC with release to RTW note. documented in this encounter Progress Notes * RODOLFO Santiago - 11/17/2024 8:30 PM EDT Subjective Chris Greenberg is a 24 y.o. male. 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 Onset: ~1914 Symptoms: chest tightness, SOA, dizziness, weakness in BUE Transported TM back to [place] [address] via [employer] without stretcher. Notes: on arrival to scene [...] cardiac disease. TM agreeable to transport to [place] [address] for eval. On arrival to clinic EKG [...] and discussed limitations of testing available at [facility]. RTW tomorrow if resolved, o/w RTC [...]
--- OUTSIDE RECORDS SUMMARY | 2024-11-20 16:00 | XMS_ITS | Encounter Summary ---
Author Organization [facility] Address [address] [place] [address] Phone [email or web address] [email or web address] Care Team Providers Care Business Proposal Rep Name Role Phone Unavailable Primary Care Provider Unavailabl e Reason for Visit * Reason Comments Return to Work / Duty Encounter Details Date Type Department Care Team (Latest Contact Info) Description 11/20/2024 4:00 PM EDT Clinical Support [facility] [place] [address] [facility] [address] [place] [address] Dana Rivera, RN [address] [place] [address] Return to work evaluation (Primary [...] on file 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 WD ID: [id number] Employer: [employer]: [id number] Shift: 2nd Full-time GL and #: Andrea Chaidez LDW: 11/17/24 DOS: N/A PROCEDURE: N/A SURGEON: N/A RELEASE: Regular Duty 11/20/24 PMLOA. TM states he went to [facility] ER on 11/18 and had blood [...] also plans to touch base with his records tech to consult about his persistent tachycardia. TM [...]
--- OUTSIDE RECORDS SUMMARY | 2024-12-03 15:13 | XMS_ITS | Encounter Summary ---
Author Organization [facility] Address [address] [place] [address] Phone CareEverywhereSuppor [email or web address] Care Team Providers Care Graduate Assistant Name Role Phone Unavailable Primary Care Provider Unavailabl e Encounter Details Date Type Department Care Team (Late st Contact Info) Description 09/02/[address] [place] [address] Kaity Scherer, RN [address] [place] [address] Social History Tobacco Use Types Packs/Day Years Used Date Smoking Tobacco: Never Smokeless Tobacco: Never Depression Answer Date Recorded PHQ Total Score 1 09/02/2024 Stress Answer Date Recorded Stress in your Life Not on file 04/02/2024 Dealing with Stress 3 04/02/2024 Sex and Gender Information Value Date Recorded Sex Assigned at Not on file 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
--- OUTSIDE RECORDS SUMMARY | 2024-12-03 15:13 | XMS_ITS | Encounter Summary ---
Author Organization [facility] Address [address] [place] [phone] Phone CareEverywhereSuppor [email or web address] Care Team Providers Care Freezer Unloader Name Role Phone Unavailable Primary Care Provider Unavailabl e Reason for Visit * Reason Onset Date Comments Education Provided 11/02/2024 Line call Encounter Details Date Type Department Care Team (Late st Contact Info) Description 11/02/2024 Documentation [facility] Safety Ergo [address] [place] [address] Arsen Roca [address] [place] [address] Social History Tobacco Use Types Packs/Day Years Used Date Smoking Tobacco: Never Smokeless Tobacco: Never Depression Answer Date Recorded PHQ Total Score 1 09/02/2024 Stress Answer Date Recorded Stress in your Life Not on file 04/02/2024 Dealing with Stress 3 04/02/2024 Sex and Gender Information Value Date Recorded Sex Assigned at Not on file 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 documented in this encounter Plan of Treatment Not on file documented as of this encounter Visit Diagnoses Not on filedocumented in this encounter
--- OUTSIDE RECORDS SUMMARY | 2024-12-03 15:13 | XMS_ITS | Encounter Summary ---
Author Organization [facility] Address [address] [place] [phone] Phone [email or web address] [email or web address] Care Team Providers Care Electronics Technician Apprentice Name Role Phone Unavailable Primary Care Provider Unavailabl e Reason for Visit * Reason Onset Date Comments Education Provided 09/30/2024 Encounter Details Date Type Department Care Team (Late st Contact Info) Description 09/30/2024 Documentation [facility] Safety Ergo [address] [place] [address] Arsen Roca [address] [place] [address] Social History Tobacco Use Types Packs/Day Years Used Date Smoking Tobacco: Never Smokeless Tobacco: Never Depression Answer Date Recorded PHQ Total Score 1 09/02/2024 Stress Answer Date Recorded Stress in your Life Not on file 04/02/2024 Dealing with Stress 3 04/02/2024 Sex and Gender Information Value Date Recorded Sex Assigned at Not on file 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
--- OUTSIDE RECORDS SUMMARY | 2024-12-03 15:13 | XMS_ITS | Encounter Summary ---
Author Organization [facility] Address [address] [place] [address] Phone CareEverywhereSuppor [email or web address] Care Team Providers Care Cable Splicing Technician Name Role Phone Unavailable Primary Care Provider Unavailabl e Encounter Details Date Type Department Care Team (Late st Contact Info) Description 11/19/[address] [address] No, [place] [address] Social History Tobacco Use Types Packs/Day Years Used Date Smoking Tobacco: Every Day E-Cigarettes Smokeless Tobacco: Never Depression Answer Date Recorded PHQ Total Score 0 11/17/2024 Stress Answer Date Recorded Stress in your Life Not on file 04/02/2024 Dealing with Stress 3 04/02/2024 Sex and Gender Information Value Date Recorded Sex Assigned at Not on file 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 WD ID: [id number] Employer: [employer]: [id number] Shift: 2nd Full-time GL and #: Andrea Chaidez Previous/current indefinite restrictions? Yes, for prior injury LDW: 11/17/24 DOS: N/A PROCEDURE: N/A SURGEON: N/A RELEASE: Regular Duty 11/20/24 Additional notes from phone call: has note If WMLOA, still getting compensation from work comp? N/A If WMLOA, treatment for any personal medical condition during leave? No If PMLOA, work-related injury immediately before leave? No Same day occ or personal follow up scheduled? N/A Reviewed and/or scheduled for WC/WH? No Request sent to confirm cost center? N/A Hayley aVn documented in this encounter Plan of Treatment Not on file documented as of this encounter Visit Diagnoses Not on filedocumented in this encounter
--- OUTSIDE RECORDS SUMMARY | 2024-12-03 15:13 | XMS_ITS | Clinical Summary ---
Author Organization [facility] Address [address] [place] [address] Phone [email or web address] [email or web address] Care Team Providers Care Scene And Lighting Design Lecturer Name Role Phone Unavailable Primary Care Provider Unavailabl e Allergies No known active allergies Medications tadalafil (CIALIS) 5 MG tablet Take 5 mg by mouth 1 (one) time each day. 04/27/2024 Active ergocalciferol (VITAMIN D2) 1.25 MG (59956 UT) capsule TAKE 1 CAPSULE BY MOUTH EVERY WEEK ON SAME DAY EACH WEEK 06/11/2024 Active busPIRone (BUSPAR) 10 MG tablet Take 10 mg by mouth in the morning and 10 mg at noon and 10 mg in the evening. 07/15/2024 Active FLUoxetine (PROzac) 40 MG capsule TAKE 1 CAPSULE BY MOUTH EVERY DAY IN THE MORNING 07/15/2024 Active Active Problems Problem Noted Date Diagnosed Date Return to work evaluation 11/20/2024 Encounters Date Type Department Care Team Description 11/20/2024 4:00 PM EDT Clinical Support [facility] [address] [place] [address] Dana Rivera, RN Return to work evaluation (Primary Dx) 11/19/2024 Telephone [address] [place] [address] No, Pcp 11/17/2024 8:30 PM EDT Clinical Support [facility] [address] [place] [address] Luana Miranda PA Chest pain, unspecified type (Primary Dx); Dizziness; Tonsillitis 11/02/2024 Documentation [facility] Safety Ergo [address] [place] [address] Abelino, Arsen 09/30/2024 Documentation [facility] Safety Ergo [address] [place] [address] Abelino, Arsen 09/30/2024 Documentation [facility] Safety Ergo [address] [place] [address] Abelino, Arsen from Last 3 Months Social History Tobacco [...] on file 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 Gender Identity Not on file Sexual [...] 04/29/2003, 01/28/2002, Additional history exists Covid-19 Immunization (3 - season) 2024 02/16/2021, 01/15/2021 Annual Preventive Exam 06/27/2024 06/27/2023 Influenza Immunization (#1) 2025 07/15/2024 HIB Immunization Completed 11/26/2001, , 1999 Hepatitis B Immunization Completed 002, 1999, 1999 Polio Immunization Completed 04/29/2003, 0 11/26/2001, 11/26/2001, Additional history exists Meningococcal Immunization Aged Out 09/22/2012 N o longer eligible based on patient's age to complete this topic Varicella Immunization Completed 09/22/2012, 2001 Hepatitis A Immunization Aged Out No longer [...]
== END 2024-12-03 23:59 | disposition home or self-care (01) ==
LOC: RT 15:12
PROVIDERS: PCP Nurse Practitioner Family; Visit Provider Nurse Practitioner Family
DX: I49.1 Atrial premature depolarization (principal); I49.3 Ventricular premature depolarization; R55 Syncope and collapse
CPT/HCPCS: 93270; 93272

== ENCOUNTER 2024-12-11 12:50 | Outpatient (CLI) | payer BC, SELFPAY ==
--- OUTSIDE RECORDS SUMMARY | 2024-11-17 20:30 | XMS_ITS | Encounter Summary ---
Author Organization [facility] Address [address] [place] [address] Phone [email or web address] Care Team Providers Care Automotive Sales Specialist Name Role Phone Unavailable Primary Care Provider Unavailabl e Reason for Visit * Reason Comments Health Center Offerings Encounter Details Date Type Department Care Team (Latest Contact Info) Description 11/17/2024 8:30 PM EDT Clinical Support TIMOTEO Menezes [facility] [address] [place] [address] Luana Miranda PA [address] [place] [address] Chest pain, unspecified type (Primary [...] on file 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 RTW tomorrow if resolved, o/w RTC with release to RTW note. documented in this encounter Progress Notes * RODOLFO Santiago - 11/17/2024 8:30 PM EDT Subjective Chris Greenberg is a 24 y.o. male. WD ID: [id number] Employer: [employer] Center: [id number] Shift: 2 Full-time GL and #: Mandy Carter Responded to tones dropped for LH/D in 250. Onset: ~1914 Symptoms: chest tightness, SOA, dizziness, weakness in BUE Transported TM back to [place] [address] via [employer] without stretcher. Notes: on arrival to scene [...] cardiac disease. TM agreeable to transport to [place] [address] for eval. On arrival to clinic EKG [...] and discussed limitations of testing available at [facility]. RTW tomorrow if resolved, o/w RTC [...]
--- OUTSIDE RECORDS SUMMARY | 2024-11-20 16:00 | XMS_ITS | Encounter Summary ---
Author Organization [facility] Address [address] [place] [address] Phone [email or web address] [email or web address] Care Team Providers Care Directory Compiler Name Role Phone Unavailable Primary Care Provider Unavailabl e Reason for Visit * Reason Comments Return to Work / Duty Encounter Details Date Type Department Care Team (Latest Contact Info) Description 11/20/2024 4:00 PM EDT Clinical Support [facility] [place] [address] [facility] [address] [place] [address] Dana Rivera, RN [address] [place] [address] Return to work evaluation (Primary [...] on file 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 TM states he went to [facility] ER on 11/18 and had blood work, [...] also plans to touch base with his operations executive to consult about his persistent tachycardia. TM [...]
--- OUTSIDE RECORDS SUMMARY | 2024-11-25 10:15 | XMS_ITS | Continuity of Care Document ---
Author Organization [facility] Address [address] [place] [address] Phone Care Team Providers Care Scribing Machine Operator Name Role Phone Zafar STAPLETON, ORGAN PIPE VOICER, [place] Unavailable Unavai lable Allergies, Adverse Reactions, [...] ON SAME DAY EACH WEEK - Active Procedures Procedure Date OFFICE/OUTPATIENT VISIT, EST Advance Directives Directive Yes / No Effective Date File Name No Information Encounters Encounter Description Practice Location Reason(s) For Visit Diagnoses Date Provider OFFICE/OUTPA TIENT VISIT, [facility], [address] [place], [address], [place] tel:[phone] [facility]AC[facility]HER ER Follow up (chief complaint)Pos sible anal Fistula (chief complaint) Body mass index [BMI] 25.0-25.9, adultPalpitationsChron ic anal fissure 5 Stephen Paris. [address] [place], [place], [id number] , [place]. tel:[phone] [facility], [address] [place] [address], [address], tel:[phone] [facility]ERA-[facility] CH HRSA CYNTHIANA f/u medication (chief complaint) Generalized Anxiety DisorderMajor depressive disorder, recurrent, mildBody mass index [BMI] 25.0-25.9, adult Aug-0 5 Stephen Paris. [address] [place], [place], [address] , [place]. tel:[phone] [facility], [address] [place] [address], [address], [place] tel:[phone] [facility] HRSA CYNTH[facility]NA Follow up on Medication (chief complaint) Body mass index [BMI] 24.0-24.9, adultGeneralized Anxiety DisorderMajor depressive disorder, recurrent, mildVitamin B12 deficiencyEncounter for HIV pre-exposure prophylaxis 0 5 Stephen Paris. [address] [place], [place], [address] , [place]. tel:[phone] [facility], [address] [place] [address], [address], [place] tel:[phone] [facility] CH HRSA CYNTHIANA FMLA papers/accomm odation request (chief complaint) Stress, not elsewhere classifiedGeneralized Anxiety DisorderEncounter for issue of other medical certificate 5 Stephen Paris. [address] [place], [place], [address] , [place]. tel:[phone] [facility], [address] [place] [address], [address], [place] tel:[phone] [facility] HRSA CYNTH[place]NA fasting labs (chief complaint)anx iety issues (chief complaint) Vitamin B12 deficiencyGeneralized Anxiety DisorderMajor depressive disorder, recurrent, mildEncounter for immunizationBody mass index [BMI] 25.0-25.9, adult 5 Stephen Paris. [address] [place], [place], [address] , [place]. tel:[phone] [facility], [address] [place] [address], [facility], tel:[phone] [facility] CH HRSA CYNTH[facility]NA No Information 4 Stephen Paris. [address] [place], [place], [address] , [place]. tel:[phone] [facility], [address] [place] [address], [facility], [place] tel:[phone] [facility] CH HRSA TERRI No Information 4 Albert Moncada. [facility] [place], [place], [address] , . tel:[phone] [facility], [address] [place] [address], [facility], tel:[phone] [facility] CH HRSA [place]NTH[place]NA Fatigue (chief complaint)Con cerned about sleep apnea. (chief complaint)sor e throat (chief complaint) FatigueApnea, not elsewhere classifiedPharyngitisS noringBody mass index [BMI] 24.0-24.9, adultEncounter for screening for COVID-19 4 Stephen Paris. [address] [place], [place], [address] , [place]. tel:[phone] [facility], [address] [place] [address], [facility], [place] tel:[phone] [facility] CH HRSA CYNTH[place] B12 Injection (chief complaint) Vitamin B12 deficiency 4 Stephen Paris. [address] [place], [place], [address] , [place]. tel: [phone] [facility], [address] [place] [address], [facility], [place] tel:[phone] [facility] CH HRSA [place]TH[place] B12 INJECTION (chief complaint) Vitamin B12 deficiency September-3 0-202 4 Stephen Paris. [address] [place], [place], [address] , [place]. tel:[phone] [facility], [address] [place] [address], [facility], tel:[phone] [facility]ERA-G-H CH HRSA CYNTH[place]NA b12 injection (chief complaint) Vitamin B12 deficiency September-2 1- 4 Stephen Paris. [address] [place], [place], [address] , [place]. tel: [phone] [facility], [address] [place] [address], [facility], [place] tel:[phone] [facility] CH HRSA CYNTH[place]NA F/u on testing (chief complaint)b12 injection # 3 of 6 (chief complaint)kym h on rt wrist (chief complaint) Body mass index [BMI] 22.0-22.9, adultTachycardia, unspecifiedVitamin B12 deficiencyRash September-1 4-202 4 Stephen Paris. [address] [place], [place], [address] , [place]. tel: [phone] [facility], [address] [place] [address], [facility], tel:[phone] [facility] CH HRSA CYNTH[place] B12 INJECTION (chief complaint) Vitamin B12 deficiency September-0 7-202 4 Stephen Paris. [address] [place], [place], [address] , [place]. tel:[phone] [facility], [address] [place] [address], [facility], [place] tel:[phone] [facility] CH HRSA CYNTH[place]NA f/u labs (chief complaint) PalpitationsVitamin B12 deficiencyBody mass index [BMI] 22.0-22.9, adultGeneralized Anxiety Disorder Apr-3 0-202 4 Stephen Paris. [address] [place], [place], [address] , [place]. tel: [phone] [facility], [address] [facility], [place], [address], [place] tel:[phone] ROSE-G-H MARIUM MATOSER Establishing Care (chief complaint) Extreme povertyUnemployment, unspecifiedEncounter for screening for diseases of the blood and blood-forming organs and certain disorders involving the immune mechanismBody mass index [BMI] 21.0-21.9, adultGeneralized Anxiety DisorderMajor depressive disorder, recurrent, mildEncounter for screening for diabetes mellitusEncounter for screening for human immunodeficiency virus [HIV]Encounter for screening for other viral diseases 4 Albert Moncada. [address] [place], [place], [address] , . tel: [phone] Family History Family Member Type Diagnosis Age [...] MMR administered Source: Other R egistry DTaP, administered Source: Other R egistry Hib-Hep B (Comvax) administered Source: O ther Registry Polio-IPV administered Source: Other R egistry DTaP, administered Source: Other R egistry Hib-Hep B (Comvax) administered Source: O ther Registry Polio-IPV administered Source: Other R egistry DTaP, administered Source: Other R egistry Payers Payer name Insurance type Covered democrat ID Authoriza tion(s) [place] [employer] [facility] [id number] [facility]- Medicaid Aetna Better H [facility] [id number] [facility]- Medicaid Aetna Wrap Payer [id number] [place] [employer] [facility] [id number] [facility]- Medicaid [place] Bcbs BL [id number] [facility]- Medicaid [place] Wrap Payer [id number] 1 [place] BCBS [facility] [id number] [facility]- Medicaid [place] Bcbs BL [id number] [facility]- Medicaid [place] Wrap Payer [id number] 1 Social History Type Description Quantity Date Captured Comments Alcohol Use Details No Caffeine Use Details coffee and soda 2 cups per day Tobacco Use Status Current non-smoker Smoking Status Never smoker Non-Smoking Tobacco Use Details : No Details Available : No Details Available Sex Male Sexual Orientation Bisexual Gender Identity Male Vital Signs Date / Time: Height Weight BMI Pulse Rate Blood Pressure Temperature Respiratory Rate Body Surface Area Head Circumference Head Circ. Percentile Wt./Jaime. Percentile BMI percentile Pulse Ox Inhaled Ox 2:43 PM 72.00 in 85.820 kg (189.20 lbs) 25.6 6 kg/m eter (2) 97 /min 117/61 mm[Hg] 98.80 F 18 /min 93 % Chief Complaint And Reason For Visit From encounter dated '11/25/2024 14:15'. ER Follow up (chief complaint). Description: Lc is here today to follow up from an ER visit. Suraj was in the ER on 11.18.24 at [facility] for chest pain. Pt was diagnosed with Atypical Chest Pain and Chiari Malformation. Today Lc is chest pain free, denies soa, dizziness. He does report having intermittent numbness in his right 3rd-5th digits at times. Feels fatigue at times.Needs a referral to Dr. Campbell for cardiology. Pt already sees Dr. Altman for Neurology and has an appointment with analia 12/10/24.Pt also reports an anal fissure (external only) on his left buttock. He states that currently it is not bothering him, no pain/bleeding and does not feel it has any signs of infection. Upon exam, tissue is pink, no erythema, does not extend to the rectum.He was advised to monitor the fistula and if new problems arise, I will refer him to general surgery.He voiced understanding. Possible anal Fistula (chief complaint). Description: Pt has a hx of hemorrhoids. He believes he may have an anal fistula that has developed. Plan Of Treatment Date Type Action Status Goal Lipid panel. Due on due Goal Tobacco Use Cess ation Counseling. Due on due Goal Tobacco Use Screening. Due o n due Goal Generalized Anxi ety Disorder - 7 (NICOLE-7). Due on due Goal Vitamin B12. Due on due Goal Follow up Plan f or abnormal BMI (Less than 18.5, greater than 25). Due on due Goal HIV screen due Goal Influenza vaccine. Due on due Goal Diabetes screening. Due on due Goal CBC. Due on due Goal Unhealthy drug use screening due Goal Depression screening. Due on due Goal CMP. Due on due Goal Drug Abuse Scree sumeet Test (DAST-10). Due on due Goal Tobacco screening. Due on due Goal Hepatitis C Screening due Goal Obtain Height, Weight, and B MT. Due on due Goal Vitamin D. Due on due Goal Lifestyle education regardin g diet completed Goal Lipid panel. Due on due Goal [...] due Goal Obtain Height, Weight, and B MT. Due on due Goal Depression screening. Due [...] Diabetes screening. Due on F due Goal Obtain Height, Weight, and B MT. Due on due Goal HIV screen due [...] due Goal Obtain Height, Weight, and B MT. Due on due Goal Unhealthy drug use screening due Goal CBC. Due on due Goal Hepatitis C Screening due Goal Tobacco Use Screening. Due o n due Goal Hepatitis C Screening due Goal Obtain Height, Weight, and B MT. Due on due Goal Vitamin D. Due [...] due Goal Obtain Height, Weight, and B MT. Due on due Goal Follow up Plan f or abnormal BMI (Less than 18.5, greater than 25). Due on due Goal Vitamin B12. Due on due Goal Lipid panel. Due on 039 due Goal Obtain Height, Weight, and B MT. Due on due Goal Influenza vaccine. Due [...] due Goal Obtain Height, Weight, and B MT. Due on due Goal Hepatitis C Screening [...] due Goal Obtain Height, Weight, and B MT. Due on due Goal Vitamin B12. Due [...] due Goal Obtain Height, Weight, and B MT. Due on due Goal CBC. Due on [...] due Goal Obtain Height, Weight, and B MT. Due on due Goal Tobacco Use Screening. [...] due Goal Obtain Height, Weight, and B MT. Due on due Goal Generalized Anxi ety Disorder - 7 (NICOLE-7). Due on due Goal Depression screening. Due on due Goal Obtain Height, Weight, and B MT. Due on due Goal CMP. Due on [...] due Goal Influenza vaccine. Due on Ap due Goal Vitamin B12. Due on due [...] A due Goal Influenza vaccine. Due on Ap due Goal CBC. Due on due Goal [...] due Goal Obtain Height, Weight, and B MT. Due on due Referral Ordered: Referrals: Cardiology. Evaluate and treat Appointment date/timeframe: 12/03/2024 ordered Referral Referred To: April Yo APRN [address] [place], [place], [id number] Ordered: Referrals: Psychiatry. April Yo APRN. Location: [facility]. Evaluate and treat Appointment date/timeframe: 08/28/2024 ordered [facility] Ordered: Referrals: Nephrology. Ana Altman- [facility]. Location: [place]. Evaluate and treat Appointment date/timeframe: 04/30/2024 ordered Referral Referred To: [facility] Ordered: Referrals: Cardiology. [facility]. Location: [place]. Diagnostic testing Appointment date/timeframe: 1 Day ordered Appointment Lc [facility] - Labs (Iwona ramosg) BOOKED History Of Present Illness Encounter Date Complaint History Of Prese nt Illness ER Follow up Lc is here today to follow up from an ER visit. Pt was in the ER on 11.18.24 at [facility] for chest pain. Pt was diagnosed with Atypical Chest Pain and Chiari Malformation. Today Lc is chest pain free, denies soa, dizziness. He does report having intermittent numbness in his right 3rd-5th digits at times. Feels fatigue at times.Needs a referral to Dr. Campbell for cardiology. Pt already sees Dr. Altman for Neurology and has an appointment with her on 12/10/24.Pt also reports an anal fissure (external only) on his left buttock. He states that currently it is not bothering him, no pain/bleeding and does not feel it has any signs of infection. Upon exam, tissue is pink, no erythema, does not extend to the rectum.He was advised to monitor the fistula and if new problems arise, I will refer him to general surgery.He voiced understanding. Possible anal Fistula Pt has a h x of hemorrhoids. He believes he may have an anal fistula that has developed. f/u medication Follow up on Med ication [...] and would like to have referral to [facility] for medication management w/ April [...] repeat labs in 6 monthsbaseline labs wnl [facility] papers/accommodation reques t Lc is here [...] higher risk for accidents. 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 He reports at least two panic attacks last week causing chest tightness and hyperventilation, where he has had to sit for a while to regain control of his anxiety. He reports it is so bad he is considering changing positions at [employer]. When his panic is so bad he [...] mg - previously written by Emiliana Lai, [employer] scout at [facility], has not been working as well. Lc [...] higher risk for accidents. 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 He reports at least two panic attacks last week causing chest tightness and hyperventilation, where he has had to sit for a while to regain control of his anxiety. He reports it is so bad he is considering changing positions at [employer]. End of Feb, grandfather and sister both [...] he is feeling better since starting the [employer] at times when he has heightened anxiety.Declines [...] sent to pharmacy and he confirms is [id number] 340- reports low energy- will start a 6 week series of b12 injections. Encouraged low fat, vitamin rich dietTotal Cholesterol 202LDL 131HDL 49 and Trigs 99Today he states he was started on Prozac 20 mg for his anxiety/depression by [facility]HNP [facility] he is doing ok with medicationHe would like therapy here at [facility]- referral made todayHe states he [...] a new patient to [facility]. Denies seeing a PCP in a few years. States that he does have a history of anxiety and depression but are doing well at this time. Surgical past is 2 teeth extractions. Denies taking any routine medications. Denies any issues or concerns today. 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 Take [...] adult; and Caloric intake should be around 0306-4260 for a female, and 5599-4059 for an adult male. Fiber intake should [...] are recommend to be 13-30 grams each. Myplate.gov is a good source for meal planning and dietary education. You may also refer to the [place] [employer] website for further low sodium, [...] as needed. Related to Pharyngitis Counseled on importa nce of sleep hygiene. Maintain a consistent [...] Lai as instructedReferral made for therapy to [facility] Related to Generalized Anxiety Disorder Patient instructed t hat any chest pain or discomfort lasting longer than 5 minutes warrants an urgent emergency room evaluation. Patient verbalized understanding. Holter Monitor has been ordered for you to go and case picker at [facility]. Wear the monitor for 72 hrs and [...] diet, body weight. Follow a low calorie (4414-6781 calories/day depending on activity levels) to achieve goal body weight. Related to Body mass index [BMI] 21.0-21.9, adult Discussed stress red uction techniques. Limit caffeine and nicotine. Try to follow a set sleep schedule. Get daily moderate exercise if able to tolerate. Related to Generalized Anxiety Disorder Mental health treatment educatio n Related to Major depressive disorder, recurrent, mild Assessments Type Assessment Date assessment Body mass index [BMI] 25.0-25.9, adult assessment Palpitations assessment Chronic anal fissure Mental Status Date Cognitive Assessment Orientation - [place] ed to time, place, person, situation.
--- OUTSIDE RECORDS SUMMARY | 2024-12-11 12:52 | XMS_ITS | Clinical Summary ---
Author Organization [facility] Address [address] [place] [address] Phone CareEverywhereSuppor [email or web address] Care Team Providers Care Ccnp Name Role Phone Unavailable Primary Care Provider Unavailabl e Allergies No known active allergies Medications tadalafil (CIALIS) 5 MG tablet Take 5 mg by mouth 1 (one) time each day. 04/27/2024 Active ergocalciferol (VITAMIN D2) 1.25 MG (11043 UT) capsule TAKE 1 CAPSULE BY MOUTH [...] Description 11/20/2024 4:00 PM EDT Clinical Support [facility] [address] [place] [address] Dana Rivera, RN Return to work evaluation (Primary Dx) 11/19/2024 Telephone [address] [place] [address] No, Pcp 11/17/2024 8:30 PM EDT Clinical Support [facility] [address] [place] [address] Luana Miranda PA Chest pain, unspecified type (Primary Dx); Dizziness; Tonsillitis 11/02/2024 Documentation [facility] Safety Ergo [address] [place] [address] Abelino, Arsen 09/30/2024 [facility]ation [facility] Ergo [address] [place] [address] Abelino, Arsen 09/30/2024 Documentation [facility] Safety Ergo [address] [place] [address] Abelino, Arsen from Last 3 [...] on file 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
--- OUTSIDE RECORDS SUMMARY | 2024-12-11 12:52 | XMS_ITS | Encounter Summary ---
Author Organization [facility] Address [address] [place] [address] Phone CareEverywhereSuppor [email or web address] Care Team Providers Care Insurance Loss Assessor Name Role Phone Unavailable Primary Care Provider Unavailabl e Encounter Details Date Type Department Care Team (Late st Contact Info) Description 11/19/[address] [address] No, [place] [address] Social History Tobacco Use Types Packs/Day Years Used Date Smoking Tobacco: Every Day E-Cigarettes Smokeless Tobacco: Never Depression Answer Date Recorded PHQ Total Score 0 11/17/2024 Stress Answer Date Recorded Stress in your Life Not on file 04/02/2024 Dealing with Stress 3 04/02/2024 Sex and Gender Information Value Date Recorded Sex Assigned at Not on file 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 WD ID: [id number] Employer: [employer] Cost Center: [id number] Shift: 2nd Full-time [...] sent to confirm cost center? N/A Hayley Van documented in this encounter Plan of Treatment Not on file documented as of this encounter Visit Diagnoses Not on filedocumented in this encounter
--- OUTSIDE RECORDS SUMMARY | 2024-12-11 12:52 | XMS_ITS | Encounter Summary ---
Author Organization [facility] Address [address] [place] [address] Phone CareEverywhereSuppor [email or web address] Care Team Providers Care Slime Plant Operator Helper Name Role Phone Unavailable Primary Care Provider Unavailabl e Reason for Visit * Reason Onset Date Comments Education Provided 11/02/2024 Line call Encounter Details Date Type Department Care Team (Late st Contact Info) Description 11/02/2024 Documentation [facility] Safety Ergo [address] [place] [address] Arsen Roca [address] [place] [address] Social History Tobacco Use Types Packs/Day Years Used Date Smoking Tobacco: Never Smokeless Tobacco: Never Depression Answer Date Recorded PHQ Total Score 1 09/02/2024 Stress Answer Date Recorded Stress in your Life Not on file 04/02/2024 Dealing with Stress 3 04/02/2024 Sex and Gender Information Value Date Recorded Sex Assigned at Not on file 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 documented in this encounter Plan of Treatment Not on file documented as of this encounter Visit Diagnoses Not on filedocumented in this encounter
--- OUTSIDE RECORDS SUMMARY | 2024-12-11 12:52 | XMS_ITS | Encounter Summary ---
Author Organization [facility] Address [address] [place] [address] Phone CareEverywhereSuppor [email or web address] Care Team Providers Care Can Closing Machine Tender Name Role Phone Unavailable Primary Care Provider Unavailabl e Reason for Visit * Reason Onset Date Comments Education Provided 09/30/2024 Encounter Details Date Type Department Care Team (Late st Contact Info) Description 09/30/2024 Documentation [facility] Safety Ergo [address] [place] [address] Arsen Roca [address] [place] [address] Social History Tobacco Use Types Packs/Day Years Used Date Smoking Tobacco: Never Smokeless Tobacco: Never Depression Answer Date Recorded PHQ Total Score 1 09/02/2024 Stress Answer Date Recorded Stress in your Life Not on file 04/02/2024 Dealing with Stress 3 04/02/2024 Sex and Gender Information Value Date Recorded Sex Assigned at Not on file 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
[2024-12-11 13:41] LABS: Chloride 101 mmol/L (98-107); Sodium 139 mmol/L (136-145)
[2024-12-11 13:42] LABS: Potassium 4.4 mmoL/L (3.5-5.1)
[2024-12-11 13:45] LABS: Anion Gap 10.4 mEq/L (5-15); Blood Urea Nitrogen 10 mg/dl (9-20); Calcium 9.8 mg/dl (8.4-10.2); Carbon Dioxide 32 mmol/L (22.0-30.0); Creatinine,Serum 0.70 mg/dl (0.66-1.25); Estimated Glomerular Filt Rate 137 ml/min (>60); GFR (African American) 166 ML/MIN (>60); Glucose 127 mg/dl (74-100)
[2024-12-11 14:21] LABS: Ferritin 45.1 ng/ml (17.9-464)
== END 2024-12-11 23:59 | disposition home or self-care (01) ==
LOC: LAB 12:50
PROVIDERS: Nurse Practitioner Family; PCP Nurse Practitioner Family; Visit Provider Specialist
DX: G93.5 Compression of brain (principal); R42 Dizziness and giddiness; R00.2 Palpitations; R55 Syncope and collapse; E83.10 Disorder of iron metabolism, unspecified
CPT/HCPCS: 36415; 80048; 82728

== ENCOUNTER 2024-12-21 07:35 | Outpatient (CLI) | payer BC, SELFPAY ==
--- OUTSIDE RECORDS SUMMARY | 2024-11-17 20:30 | XMS_ITS | Encounter Summary ---
Author Organization [facility] Address [address] [place] [address] Phone [email or web address] [email or web address] Care Team Providers Care Puttying And Calking Supervisor Name Role Phone Unavailable Primary Care Provider Unavailabl e Reason for Visit * Reason Comments Health Center Offerings Encounter Details Date Type Department Care Team (Latest Contact Info) Description 11/17/2024 8:30 PM EDT Clinical Support TIMOTEO Menezes [facility] [address] [place] [address] Luana Miranda PA [address] [place] [address] Chest pain, unspecified type (Primary [...] on file 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 RTW tomorrow if resolved, o/w RTC with release to RTW note. documented in this encounter Progress Notes * RODOLFO Santiago - 11/17/2024 8:30 PM EDT Subjective Chris Greenberg is a 24 y.o. male. 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 Onset: ~1914 Symptoms: chest tightness, SOA, dizziness, weakness in BUE Transported TM back to [place] [address] via [employer] without stretcher. Notes: on arrival to scene [...] cardiac disease. TM agreeable to transport to [place] [address] for eval. On arrival to clinic EKG [...] and discussed limitations of testing available at [facility]. RTW tomorrow if resolved, o/w RTC [...]
--- OUTSIDE RECORDS SUMMARY | 2024-11-20 16:00 | XMS_ITS | Encounter Summary ---
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 Role Phone Unavailable Primary Care Provider Unavailabl e Reason for Visit * Reason Comments Return to Work / Duty Encounter Details Date Type Department Care Team (Latest Contact Info) Description 11/20/2024 4:00 PM EDT Clinical Support [facility] [place] [id number] [facility] [address] [place] [address] Dana Rivera, RN [address] [place] [address] Return to work evaluation (Primary Dx) Social History Tobacco Use Types Packs/Day Years Used Date Smoking Tobacco: Every Day E-Cigarettes Smokeless Tobacco: Never Depression Answer Date Recorded PHQ Total Score 0 11/17/2024 Stress Answer Date Recorded Stress in your Life Not on file 04/02/2024 Dealing with Stress 3 04/02/2024 Sex and Gender Information Value Date Recorded Sex Assigned at Not on file Legal Sex Male 6:08 AM [employer]OD [employer] Gender Identity Not on file Sexual Orientation Not on file documented as of this encounter Last Filed Vital Signs Vital Sign Reading Time Taken Comments Blood Pressure 142/84 11/20/2024 4:02 PM EDT Pulse 110 11/20/2024 4:02 PM EDT Temperature 36.8 C (98.2 F) 11/20/2024 4:02 PM EDT Respiratory Rate 18 11/20/2024 4:02 PM EDT Oxygen Saturation 95% 11/20/2024 4:02 PM EDT Inhaled Oxygen Concentration - - Weight - - Height - - Body Mass Index - - documented in this encounter Patient Instructions * Patient Instructions* Dana Rivera RN - 11/20/2024 4:00 PM EDT Call [facility] for RTW appt when released by neuro/cards/PCP documented in this encounter Progress Notes * Dana Rivera RN - 11/20/2024 4:00 PM EDT Subjective Chris Greenberg is a 24 y.o. male who presents for personal return to work after personal medical leave of absence for chest pain . 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 TM states he went to [facility] ER on 11/18 and had blood work, EKG, chest x ray, and everything came back normal. He has been released to RTW today no restrictions. TM also states that they performed a CT scan of his head and found a chiari malformation. TM was told that the malformation is likely the cause of some intermittent vertigo he experiences especially when extending his neck. He has made an appointment with his PCP for 11/25 and will receive a referral for neurology/neurosurgery at that time. 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 TM states he is not dizzy but is worried about experiencing dizziness and vertigo in light of the new knowledge about the chiari malformation. TM does not believe he should RTW today and intends to contact his PCP about getting in to see neurology DARCIE. TM understands he will need to contact Hugo, and will need releases from any provider he sees while he is off work. Triage nurse: WANDA DYER HPI History Reviewed: Tobacco Allergies Meds Med Hx Surg Hx Objective Visit Vitals BP (!) 142/84 Pulse 110 Temp 98.2 ??F Resp 18 SpO2 95% Smoking Status Every Day Review of Systems PHQ-9 Total Score: 0 (11/20/2024 4:00 PM) Physical Exam Assessment: ICD-10-CM ICD-9-CM 1. Return to work evaluation Z76.89 V72.85 No orders of the defined types were placed in this encounter. Patient Instructions Call [facility] for RTW appt when released by neuro/cards/PCP documented in this encounter Plan of Treatment Not on file documented as of this encounter Visit Diagnoses Diagnosis Return to work evaluation- Primary Other specified examination documented in this encounter
--- OUTSIDE RECORDS SUMMARY | 2024-12-21 07:38 | XMS_ITS | Clinical Summary ---
Author Organization [facility] Address [address] [place] [address] Phone [email or web address] Care Team Providers Care Narcotics Agent Name Role Phone Unavailable Primary Care Provider Unavailabl e Allergies No known active allergies Medications tadalafil (CIALIS) 5 MG tablet Take 5 mg by mouth 1 (one) time each day. 04/27/2024 Active ergocalciferol (VITAMIN D2) 1.25 MG (26355 UT) capsule TAKE 1 CAPSULE BY MOUTH [...] Description 11/20/2024 4:00 PM EDT Clinical Support [facility] [address] [place] [address] Dana Rivera, RN Return to work evaluation (Primary Dx) 11/19/2024 Telephone [address] [place] [address] No, Pcp 11/17/2024 8:30 PM EDT Clinical Support [facility] [address] [place] [address] Luana Miranda PA Chest pain, unspecified type (Primary Dx); Dizziness; Tonsillitis 11/02/2024 Documentation [facility] [address] [place] [address] Abelino, Arsen 09/30/2024 [facility] [address] [place] [address] Abelino, Arsen 09/30/2024 Documentation [facility] [address] [place] [address] Abelino, Arsen from Last 3 [...] on file 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
--- OUTSIDE RECORDS SUMMARY | 2024-12-21 07:38 | XMS_ITS | Encounter Summary ---
Author Organization [facility] Address [address] [place] [address] Phone [email or web address] Care Team Providers Care Motorcycle Mechanic Apprentice Name Role Phone Unavailable Primary Care Provider Unavailabl e Reason for Visit * Reason Onset Date Comments Education Provided 09/30/2024 Encounter Details Date Type Department Care Team (Late st Contact Info) Description 09/30/2024 Documentation [facility] [address] [place] [address] Arsen Roca [address] [place] [address] Social History Tobacco Use Types Packs/Day Years Used Date Smoking Tobacco: Never Smokeless Tobacco: Never Depression Answer Date Recorded PHQ Total Score 1 09/02/2024 Stress Answer Date Recorded Stress in your Life Not on file 04/02/2024 Dealing with Stress 3 04/02/2024 Sex and Gender Information Value Date Recorded Sex Assigned at Not on file 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
--- OUTSIDE RECORDS SUMMARY | 2024-12-21 07:38 | XMS_ITS | Encounter Summary ---
Author Organization [facility] Address [address] [place] [address] Phone [email or web address] Care Team Providers Care Cable Television Program Director Name Role Phone Unavailable Primary Care Provider Unavailabl e Reason for Visit * Reason Onset Date Comments Education Provided 11/02/2024 Line call Encounter Details Date Type Department Care Team (Late st Contact Info) Description 11/02/2024 Documentation [facility] [address] [place] [address] Arsen Roca [address] [place] [address] Social History Tobacco Use Types Packs/Day Years Used Date Smoking Tobacco: Never Smokeless Tobacco: Never Depression Answer Date Recorded PHQ Total Score 1 09/02/2024 Stress Answer Date Recorded Stress in your Life Not on file 04/02/2024 Dealing with Stress 3 04/02/2024 Sex and Gender Information Value Date Recorded Sex Assigned at Not on file 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 documented in this encounter Plan of Treatment Not on file documented as of this encounter Visit Diagnoses Not on filedocumented in this encounter
--- OUTSIDE RECORDS SUMMARY | 2024-12-21 07:38 | XMS_ITS | Encounter Summary ---
Author Organization [facility] Address [address] [place] [address] Phone [email or web address] Care Team Providers Care Family Support Worker Name Role Phone Unavailable Primary Care Provider Unavailabl e Encounter Details Date Type Department Care Team (Late st Contact Info) Description 11/19/[address] [address] No, [place] [address] Social History Tobacco Use Types Packs/Day Years Used Date Smoking Tobacco: Every Day E-Cigarettes Smokeless Tobacco: Never Depression Answer Date Recorded PHQ Total Score 0 11/17/2024 Stress Answer Date Recorded Stress in your Life Not on file 04/02/2024 Dealing with Stress 3 04/02/2024 Sex and Gender Information Value Date Recorded Sex Assigned at Not on file Legal Sex Male 6:08 AM TSO Gender Identity Not on file Sexual Orientation Not on file documented as of this encounter Miscellaneous Notes * Telephone Encounter - Hayley Van - 11/19/2024 9:29 AM EDT Chris Greenberg calls clinic to discuss return to work after personal medical leave of absence for chest pain . WD ID: [id number] Employer: [employer]: [id number] Shift: 2nd Full-time [...]
--- NOTE | 2024-12-21 08:00 | CA_ITS ---
APPROVED REPORT EXAM: Comprehensive 2D, Doppler, and color-flow Echocardiogram Mail Forwarding System Markup Clerk: Sarah Rodriguez RDCS Ht: 6 ft 0 in Wt: 186lbs BSA: 2.07 BP: 143/66 mmHg Indications: Palpitations M-Mode Dimensions RVDd 1.86 cm (0.9-2.6) LA Diam 2.83 cm (1.9-4.0) LVDd 5.35 cm (3.5-5.7) LVDs 3.92 cm (3.5-5.7) IVSd 0.67 cm (0.6-1.1) PWd 0.70 cm (0.6-1.1) EF (Teich) 51.80% EPSs 2.26 cm FS 26.70% EDV (Teich) 138.30 mL ESV (Teich) 66.70 mL LV Diastology E Decel Time 197 (160-240 msec) E/A Ratio 1.3 Mitral Valve MV E Max Fletcher. 80.0 (40-130 cm/s) MV A Velocity 62.0 (40-130 cm/s) E/A Ratio 1.29 MV PHT 58.0 ms Left Ventricle The left ventricle is normal size. The left ventricular systolic function is normal. The left ventricular ejection fraction is within the normal range. There is normal left ventricular wall thickness. There is normal LV segmental wall motion. The left ventricular diastolic function is normal. LVEF is 55%. Right Ventricle The right ventricle is normal size. The right ventricular systolic function is normal. Atria The left atrium size is normal. The right atrium size is normal. There is no Doppler evidence of interatrial shunt. Agitated saline administration demonstrates no evidence of interatrial shunt. Aortic Valve The aortic valve opens well. No aortic regurgitation is present. Mitral Valve The mitral valve is normal in structure. No evidence of mitral valve stenosis. Mild mitral regurgitation. Tricuspid Valve Tricuspid valve is grossly normal in structure and function. Trace tricuspid regurgitation.There is insufficient TR jet to estimate RVSP. Pulmonic Valve The pulmonary valve is normal in structure. Trace pulmonic regurgitation. Great Vessels The aortic root is normal in size. IVC is normal in size and collapses >50% with inspiration. Pericardium There is no pericardial effusion. Other Information Study Quality: Adequate Conclusion Normal biventricular systolic function. Mild MR. There is no Doppler evidence of interatrial shunt. Agitated saline administration demonstrates no evidence of interatrial shunt. Electronically signed by : Sofiya Eddy MD 12/21/2024 13:27:25
[2024-12-21 08:55] VITALS: BMI 25.6
[2024-12-21] MEDS: IVABRADINE HCL 7.5MG TABLET PO (09:09)
[2024-12-21] MEDS: METOPROLOL TARTRATE 50MG TABLET PO (09:09)
[2024-12-21 09:12] VITALS: BP 135/89; PULSE 80; RESP 16; O2SAT 99
[2024-12-21 09:31] VITALS: BP 127/81; PULSE 60; RESP 16; O2SAT 95
[2024-12-21 09:34] VITALS: BP 115/62; PULSE 66; RESP 18; O2SAT 96
[2024-12-21 09:37] VITALS: BP 101/60; PULSE 59; RESP 18; O2SAT 95
[2024-12-21] MEDS: IOPAMIDOL-370 (76%);100ML BOTTLE 85 ML IV (09:49)
[2024-12-21] MEDS: 0.9 % SODIUM CHLORIDE 50 ML VIAL IV (09:49)
[2024-12-21] MEDS: SODIUM CHLORIDE 0.9% 10ML SYR (RAD ONLY) 10 ML IV (09:49)
== END 2024-12-21 09:48 | disposition home or self-care (01) ==
LOC: RT 07:37 → RAD 09:25
PROVIDERS: PCP Nurse Practitioner Family; Visit Provider Nurse Practitioner Family
DX: I34.0 Nonrheumatic mitral (valve) insufficiency (principal); R55 Syncope and collapse; R42 Dizziness and giddiness; Z82.41 Family history of sudden cardiac death
CPT/HCPCS: 75574; 93306; Q9967

== ENCOUNTER → 2024-12-24 14:10 | Outpatient (CLI) | payer BC, SELFPAY ==
--- OUTSIDE RECORDS SUMMARY | 2024-11-17 20:30 | XMS_ITS | Encounter Summary ---
Author Organization [facility] Address [address] [place] [address] Phone CareEverywhereSuppor [email or web address] Care Team Providers Care Vamp Wetter Name Role Phone Unavailable Primary Care Provider Unavailabl e Reason for Visit * Reason Comments Health Center Offerings Encounter Details Date Type Department Care Team (Latest Contact Info) Description 11/17/2024 8:30 PM EDT Clinical Support TIMOTEO Menezes 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 RTW tomorrow if resolved, o/w RTC with release to RTW note. documented in this encounter Progress Notes * RODOLFO Santiago - 11/17/2024 8:30 PM EDT Subjective Chris Greenberg is a 24 y.o. male. 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 Onset: ~1914 Symptoms: chest tightness, SOA, dizziness, weakness in BUE Transported TM back to [place] [address] via [employer] without stretcher. Notes: on arrival to scene [...] cardiac disease. TM agreeable to transport to [place] [address] for eval. On arrival to clinic EKG [...] and discussed limitations of testing available at [facility]. RTW tomorrow if resolved, o/w RTC [...]
--- OUTSIDE RECORDS SUMMARY | 2024-11-20 16:00 | XMS_ITS | Encounter Summary ---
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 TM [...]
--- OUTSIDE RECORDS SUMMARY | 2024-12-17 12:39 | XMS_ITS | Continuity of Care Document ---
Author Organization [facility] Address [address] [place] [address] Phone Care Team Providers Care Transportation Modeler Name Role Phone Zafar STAPLETON, CONSTRUCTION AND MAINTENANCE INSPECTOR, [place] Unavailable Unavai lable Allergies, Adverse Reactions, Alerts Substance Reaction Status Criticality NO KNOWN ALLERGIES Active No Inform ation Medications Medication Instructions [...] Location Reason(s) For Visit Diagnoses Date Provider [facility], [address] [place], [address], [place] tel:[phone] [facility] No Information 5 Zafar Toledo. [address] [place] [address], [id number] , . [phone] [facility], [address] [place], [address], tel:[phone] [place] [facility] Follow up (chief complaint)Pos sible anal Fistula (chief complaint) Body mass index [BMI] 25.0-25.9, adultPalpitationsChron ic anal fissure 5 Stephen Paris. [address], [place], [id number] , . tel: [phone] [facility], [address] [place] [address], [facility], tel:[phone] [facility] [place] f/u medication (chief complaint) Generalized Anxiety DisorderMajor depressive disorder, recurrent, mildBody mass index [BMI] 25.0-25.9, adult Aug- 5 Stephen Paris. [address], [place], [id number] , . tel: [phone] [facility], [address] [place] [address], [facility], tel:[phone] [facility] [place] Follow up on Medication (chief complaint) Body mass index [BMI] 24.0-24.9, adultGeneralized Anxiety DisorderMajor depressive disorder, recurrent, mildVitamin B12 deficiencyEncounter for HIV pre-exposure prophylaxis 5 Stephen Paris. [address], [place], [id number] , [place]. tel: [phone] [facility], [address] [place] [address], [facility], tel:[phone] [facility] [place] FMLA papers/accomm odation request (chief complaint) Stress, not elsewhere classifiedGeneralized Anxiety DisorderEncounter for issue of other medical certificate 5 Stephen Paris. [address], [place], [id number] , [place]. tel: [phone] [facility], [address] [place] [address], [facility], tel:[phone] [facility] [place] fasting labs (chief complaint)anx iety issues (chief complaint) Vitamin B12 deficiencyGeneralized Anxiety DisorderMajor depressive disorder, recurrent, mildEncounter for immunizationBody mass index [BMI] 25.0-25.9, adult 5 Stephen Paris. [address], [place], [id number] , [place]. tel:[phone] [facility], [address] [place] [address], [facility], tel:[phone] [facility] [place] No Information 4 Stephen Paris. [address], [place], [id number] , [place]. tel:[phone] [facility], [address] [place] [address], [facility], tel:[phone] [facility] No Information 4 Albert Moncada. [address], [id number] , . tel:[phone] [facility], [address] [place] [address], [facility], tel:[phone] [facility] [place] Fatigue (chief complaint)Con cerned about sleep apnea. (chief complaint)sor e throat (chief complaint) FatigueApnea, not elsewhere classifiedPharyngitisS noringBody mass index [BMI] 24.0-24.9, adultEncounter for screening for COVID-19 4 Stephen Paris. [address] [place] [address], [id number] , [place]. tel:[phone] [facility], [address] [place] [address], [facility], [place] tel:[phone] [facility] [place] B12 Injection (chief complaint) Vitamin B12 deficiency 4 Stephen Paris. [address], [place], [id number] , [place]. tel: [phone] [facility], [address] [place] [address], [facility], tel:[phone] [facility] [place] B12 INJECTION (chief complaint) Vitamin B12 deficiency September-3 0-202 4 Stephen Paris. [address], [place], [id number] , [place]. tel:[phone] [facility], [address] [place] [address], [facility], [place] tel:[phone] [facility] [place] b12 injection (chief complaint) Vitamin B12 deficiency September-2 1-202 4 Stephen Paris. [address], [place], [id number] , . tel: [phone] [facility], [address] [place] [address], [facility], tel:[phone] [facility] [place] F/u on testing (chief complaint)b12 injection # 3 of 6 (chief complaint)kym h on rt wrist (chief complaint) Body mass index [BMI] 22.0-22.9, adultTachycardia, unspecifiedVitamin B12 deficiencyRash September-1 4-202 4 Stephen Paris. [address], [place], [id number] , [place]. tel:[phone] [facility], [address] [place] [address], [facility], [place] tel:[phone] [facility] [place] B12 INJECTION (chief complaint) Vitamin B12 deficiency September-0 7-202 4 Stephen Paris. [address], [place], [id number] , [place]. tel: [phone] [facility], [address] [place] [address], [facility], [place] tel:[phone] [facility] [place] f/u labs (chief complaint) PalpitationsVitamin B12 deficiencyBody mass index [BMI] 22.0-22.9, adultGeneralized Anxiety Disorder Aug-3 4 Zafar Toledo. [address] [place], [place], [id number] , [place]. tel:[phone] [facility], [address] [place], [address], [place] tel:[phone] [facility] Establishing Care (chief complaint) Extreme povertyUnemployment, unspecifiedEncounter for screening for diseases of the blood and blood-forming organs and certain disorders involving the immune mechanismBody mass index [BMI] 21.0-21.9, adultGeneralized Anxiety DisorderMajor depressive disorder, recurrent, mildEncounter for screening for diabetes mellitusEncounter for screening for human immunodeficiency virus [HIV]Encounter for screening for other viral diseases Aug- 4 Albert Moncada. [address] [place], [place], [id number] , [place]. tel:[phone] Family History Family Member Type Diagnosis Age [...] mL dosage, for intramuscular use administered Source: Stefani w Immunization Record COVID-19 mRNA (PFR) administered [...] egistry Payers Payer name Insurance type Covered libertarian ID Authoriza tion(s) [place] [employer] [place] BL [id number] [facility]- Medicaid Aetna [place] [id number] [facility]- Medicaid Aetna Wrap Payer [id number] [employer] [employer] [place] BL [id number] [facility]- Medicaid Hines Bcbs BL [id number] [facility]- Medicaid Hines Wrap Payer [id number] 1 [employer] [place] BL [id number] [facility]- Medicaid Hines Bcbs BL [id number] [facility]- Medicaid Hines Wrap Payer [id number] Social History Type Description Quantity Date Captured Comments Alcohol Use Details Unknown Caffeine Use Details Unknown Tobacco Use Status No Information Smoking Status No Information Sex Male Sexual Orientation Bisexual Gender Identity Male Chief Complaint And Reason For Visit No Information Plan Of Treatment Date Type Action Status Goal Lipid panel. Due on due Goal Influenza vaccine. Due on due Goal Hepatitis C Screening due Goal HIV screen due Goal Depression screening. Due on due Goal Unhealthy drug use screening due Goal Drug Abuse Scree sumeet Test (DAST-10). Due on due Goal CMP. Due on due Goal Obtain Height, Weight, and B MA. Due on due Goal Tobacco Use Screening. Due o n due Goal Vitamin B12. Due on due Goal Tobacco Use Cess ation Counseling. Due on due Goal Hematocrit/Hemoglobin. Due o n due Goal Tobacco screening. Due on due Goal Vitamin D. Due on due Goal CBC. Due on due Goal Hemoglobin (Pree chiquita/HR 9 months). Due on due Goal Generalized Anxi ety Disorder - 7 (NICOLE-7). Due on due Goal Diabetes screening. Due on due Goal Follow up Plan f or abnormal BMI (Less than 18.5, greater than 25). Due on due Goal Lipid panel. Due [...] due Goal Obtain Height, Weight, and B MA. Due on due Goal Vitamin D. Due [...] due Goal Obtain Height, Weight, and B MA. Due on due Goal Depression screening. Due on due Goal Diabetes screening. Due on F due Goal Drug Abuse Scree sumeet Test [...] due Goal Obtain Height, Weight, and B MA. Due on due Goal HIV screen due [...] due Goal Obtain Height, Weight, and B MA. Due on due Goal Unhealthy drug use screening due Goal CBC. Due on due Goal Hepatitis C Screening due Goal Tobacco Use Screening. Due o n due Goal Hepatitis C Screening due Goal Obtain Height, Weight, and B MA. Due on due Goal Vitamin D. Due on due Goal Follow up Plan f or abnormal BMI (Less than 18.5, greater than 25). Due on due Goal Vitamin B12. Due on due Goal Drug Abuse Scree [...] Goal Diabetes screening. Due on due Goal Lifestyle education regardin g diet completed Goal Drug Abuse Scree sumeet Test (DAST-10). Due on due Goal Depression screening. Due on due Goal Lipid panel. Due on due Goal Unhealthy drug use screening due Goal HIV screen due Goal Vitamin B12. Due on due Goal Generalized Anxi ety [...] due Goal Obtain Height, Weight, and B MA. Due on due Goal Follow up Plan f or abnormal BMI (Less than 18.5, greater than 25). Due on due Goal Vitamin B12. Due on due Goal Lipid panel. Due on 039 due Goal Obtain Height, Weight, and B MA. Due on due Goal Influenza vaccine. Due [...] due Goal Obtain Height, Weight, and B MA. Due on due Goal Hepatitis C Screening [...] due Goal Obtain Height, Weight, and B MA. Due on due Goal Vitamin B12. Due on due Goal HIV screen due Goal Diabetes screening. Due on A due Goal Lipid panel. Due on 039 due Goal Hepatitis C Screening due Goal [...] due Goal Obtain Height, Weight, and B MA. Due on due Goal CBC. Due on due Goal Follow up Plan f or abnormal BMI (Less than 18.5, greater than 25). Due on due Goal Depression screening. Due on due Goal Influenza vaccine. Due on due Goal Hepatitis C Screening due Goal Unhealthy drug use screening due Goal Lipid panel. Due on due Goal CBC. Due on due Goal Obtain Height, Weight, and B MA. Due on due Goal Tobacco Use Screening. [...] Goal Lipid panel. Due on due Goal Influenza vaccine. Due on due Goal Tobacco Use Screening. Due o n due Goal CBC. Due on due Goal Hepatitis C Screening due Goal Vitamin D. Due on due Goal HIV screen due Goal Obtain Height, Weight, and B MA. Due on due Goal Generalized Anxi ety Disorder - 7 (NICOLE-7). Due on due Goal Depression screening. Due on due Goal Obtain Height, Weight, and B MA. Due on due Goal CMP. Due on [...] due Goal Obtain Height, Weight, and B MA. Due on due Referral Ordered: Referrals: Cardiology. Evaluate and treat Appointment date/timeframe: 12/03/2024 ordered Referral Referred To: April Yo APRN [facility] [place], [place], [phone] Ordered: Referrals: Psychiatry. April Yo APRN. Location: [place] [facility]. Evaluate and treat Appointment date/timeframe: 08/28/2024 ordered [facility]dered: Referrals: [facility] Location: [place]. Evaluate and treat Appointment date/timeframe: 04/30/2024 ordered Referral Referred To: [facility] Ordered: Referrals: Cardiology. [facility]. Location: [place]. Diagnostic testing Appointment date/timeframe: 1 Day ordered Appointment Lc Greenberg - Vida (Fas rachel) BOOKED History Of Present Illness Encounter Date Complaint History Of Prese nt Illness ER Follow up Lc is here today to follow up from an ER visit. Suraj was in the ER on 11.18.24 at [facility] for chest pain. Pt was diagnosed with [...] and would like to have referral to [facility] for medication management w/ April Yo APRN.He [...] repeat labs in 6 monthsbaseline labs wnl [facility] papers/accommodation reques t Lc is here [...] higher risk for accidents. 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 He reports at least two panic attacks last week causing chest tightness and hyperventilation, where he has had to sit for a while to regain control of his anxiety. He reports it is so bad he is considering changing positions at [employer]. When his panic is so bad he [...] mg - previously written by Emiliana Lai, shuttle filler at [facility], has not been working as well. Lc [...] higher risk for accidents. 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 He reports at least two panic attacks last week causing chest tightness and hyperventilation, where he has had to sit for a while to regain control of his anxiety. He reports it is so bad he is considering changing positions at [employer]. End of Feb, grandfather and sister both [...] he is feeling better since starting the [employer] races at times when he has heightened [...] sent to pharmacy and he confirms is [id number] 340- reports low energy- will start a 6 week series of b12 injections. Encouraged low fat, vitamin rich dietTotal Cholesterol 202LDL 131HDL 49 and Trigs 99Today he states he was started on Prozac 20 mg for his anxiety/depression by SABINE VenegasP [facility] he is doing ok with medicationHe would like therapy here at [facility]- referral made todayHe states he mental clarity [...] concerns today. Instructions Date Instruction Additional Infor gabbyion Keep area clean and drymonitor for changes [...] Related to Major depressive disorder, recurrent, mild Discussed stress red uction techniques. Take medications as prescribed. Limit caffeine and nicotine. Try to follow a set sleep schedule. Get daily moderate exercise if able to tolerate. Related to Generalized Anxiety Disorder Giving encouragement to exercise Related to Body [...] adult; and Caloric intake should be around 7219-1136 for a female, and 7134-1232 for an adult male. Fiber intake should [...] are recommend to be 13-30 grams each. MyParcelGenie.gov is a good source for meal planning and dietary education. You may also refer to the [place] [employer] website for further low sodium, health heart diet information. Mediterainian diet would be a suitable diet for your current health conditions. Related to Body mass index [BMI] 25.0-25.9, adult You may have some mi ld discomfort, chills, or a sore arm in the next 24 hrs. If needed you may take tylenol per packing instructions Related to Encounter for immunization Take medications as prescribed. Follow a sleep schedule. Try to engage in 30 minutes of moderate activity daily if tolerated, as exercise has been shown to improve depression symptoms Related to Major depressive disorder, recurrent, mild Discussed stress red uction techniques. Take medications [...] Lai as instructedReferral made for therapy to [facility] Related to Generalized Anxiety Disorder Patient instructed t hat any chest pain or discomfort lasting longer than 5 minutes warrants an urgent emergency room evaluation. Patient verbalized understanding. Holter Monitor has been ordered for you to go and warp picker at [facility]. Wear the monitor for 72 hrs and [...] diet, body weight. Follow a low calorie (2720-3351 calories/day depending on activity levels) to achieve [...]
--- OUTSIDE RECORDS SUMMARY | 2024-12-21 10:45 | XMS_ITS | Encounter Summary ---
Author Organization Healthcare Address [address] [id number] Care Team Providers Care Computer Science Professor Name Role Phone Pcp, No Primary Care Provider Unavailabl e Encounter Details Date Type Department Care Team (Late st Contact Info) Description 12/21/2024 10:45 AM EDT Ancillary Procedure [address] [place] [phone] Chest pain Social History Tobacco Use Types [...] Data Image Acquisition: Images were acquired at [facility] in [place], and interpreted at [facility]. A 128-slice MDCT scanner ([employer]a View) was used for data acquisition. A [...] was reviewed interactively on an advanced workstation (Agentrun) capable of 2 and 3 dimensional displays [...] Data Image Acquisition: Images were acquired at [facility] in [place], andinterpreted at [facility]. A 128-slice MDCT scanner (Boloco) was used for data acquisition. A non-contrast [...] Data wasreviewed interactively on an advanced workstation (Agentrun) capable of 2and 3 dimensional displays in [...] on 12/22/2024 4:33 AM us Sarah Moore MECHANICAL MANUFACTURING ENGINEER IMG CT PROCEDURES Final Resu lt documented in this encounter Visit Diagnoses Diagnosis Chest pain Unspecified chest pain documented in this encounter Care Teams Computer Science Professor Relationship Specialty Start Date End Date Pcp, No [address] [place] [address] PCP - General Family Medicine 12/08/24 documented as of this encounter
--- OUTSIDE RECORDS SUMMARY | 2024-12-24 14:13 | XMS_ITS | Encounter Summary ---
Author Organization Healthcare Address [address] [place] [address] Care Team Providers Care Consulting Application Engineer Name Role Phone Pcp, No Primary Care Provider Unavailabl e Encounter Details Date Type Department Care Team ([facility] st Contact Info) Description 11/18/2024 Orders Only External Location [address] [place] [address] Provider, External Social History Tobacco Use Types Packs/Day Years [...] Procedure Name Priority Date/Time Associated Diagnosis Comments XR THORACIC OUTSIDE IMAGES 11/18/2024 6:21 PM EDT documented in this encounter Results * XR THORACIC OUTSIDE IMAGES (11/18/2024 6:21 PM EDT) Anatomical Region Laterality Modality Radiographic Radha ging 11/18/2024 6:21 PM EDT us External Provider IMG XR PROCEDURES Final Result documented in this encounter Visit Diagnoses Not on filedocumented in this encounter Care Teams Consulting Application Engineer Relationship Specialty Start Date End Date Pcp, No [address] [place] [address] PCP - General Family Medicine 12/08/24 documented as of this encounter
--- OUTSIDE RECORDS SUMMARY | 2024-12-24 14:13 | XMS_ITS | Encounter Summary ---
Author Organization Healthcare Address [address] [place] [address] Care Team Providers Care Field Installation Technician Name Role Phone Pcp, No Primary Care Provider Unavailabl e Encounter Details Date Type Department Care Team ([facility] st Contact Info) Description 12/21/2024 Orders Only External Location [address] [place] [address] Sarah Moore, JENAE [address] [facility] [address] [id number] Social History Tobacco Use Types Packs/Day Years [...] Name Priority Date/Time Associated Diagnosis Comments CT OUTSIDE IMAGES 12/21/2024 9:39 AM EDT documented in this encounter Results * CT OUTSIDE IMAGES (12/21/2024 9:39 AM EDT) Anatomical Region Laterality Modality Computed Tomogra phy 12/21/2024 9:39 AM EDT us Sarah Moore APRN IMG CT PROCEDURES Final Resu lt documented in this encounter Visit Diagnoses Not on filedocumented in this encounter Care Teams Field Installation Technician Relationship Specialty Start Date End Date Pcp, No [address] [place] [address] PCP - General Family Medicine 12/08/24 documented as of this encounter
--- OUTSIDE RECORDS SUMMARY | 2024-12-24 14:13 | XMS_ITS | Encounter Summary ---
Author Organization [facility] Address [address] [place] [phone] Phone [email or web address] Care Team Providers Care Time Clock Repairer Name Role Phone Unavailable Primary Care Provider Unavailabl e Reason for Visit * Reason Onset Date Comments Education Provided 11/02/2024 Line call Encounter Details Date Type Department Care Team (Late st Contact Info) Description 11/02/2024 Documentation [facility] Safety Ergo [address] [place] [address] Arsen Roca [address] [place] [address] Social History Tobacco Use Types Packs/Day Years Used Date Smoking Tobacco: Never Smokeless Tobacco: Never Depression Answer Date Recorded PHQ Total Score 1 09/02/2024 Stress Answer Date Recorded Stress in your Life Not on file 04/02/2024 Dealing with Stress 3 04/02/2024 Sex and Gender Information Value Date Recorded Sex Assigned at Not on file 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 documented in this encounter Plan of Treatment Not on file documented as of this encounter Visit Diagnoses Not on filedocumented in this encounter
--- OUTSIDE RECORDS SUMMARY | 2024-12-24 14:13 | XMS_ITS | Encounter Summary ---
Author Organization [facility] Address [address] [place] [phone] Phone [email or web address] Care Team Providers Care Spooler Name Role Phone Unavailable Primary Care Provider Unavailabl e Reason for Visit * Reason Onset Date Comments Education Provided 09/30/2024 Encounter Details Date Type Department Care Team (Late st Contact Info) Description 09/30/2024 Documentation [facility] Safety Ergo [address] [place] [address] Arsen Roca [address] [place] [address] Social History Tobacco Use Types Packs/Day Years Used Date Smoking Tobacco: Never Smokeless Tobacco: Never Depression Answer Date Recorded PHQ Total Score 1 09/02/2024 Stress Answer Date Recorded Stress in your Life Not on file 04/02/2024 Dealing with Stress 3 04/02/2024 Sex and Gender Information Value Date Recorded Sex Assigned at Not on file 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
--- OUTSIDE RECORDS SUMMARY | 2024-12-24 14:13 | XMS_ITS | Encounter Summary ---
Author Organization [facility] Address [address] [place] [address] Phone [email or web address] Care Team Providers Care Drug Purchaser Name Role Phone Unavailable Primary Care Provider Unavailabl e Encounter Details Date Type Department Care Team (Late st Contact Info) Description 11/19/[address] [address] No, [place] [address] Social History Tobacco Use Types Packs/Day Years Used Date Smoking Tobacco: Every Day E-Cigarettes Smokeless Tobacco: Never Depression Answer Date Recorded PHQ Total Score 0 11/17/2024 Stress Answer Date Recorded Stress in your Life Not on file 04/02/2024 Dealing with Stress 3 04/02/2024 Sex and Gender Information Value Date Recorded Sex Assigned at Not on file 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 WD ID: [id number] Employer: [employer]: [id number] Shift: 2nd Full-time [...]
--- OUTSIDE RECORDS SUMMARY | 2024-12-24 14:13 | XMS_ITS | Encounter Summary ---
Author Organization Healthcare Address [address] [place] [address] Care Team Providers Care Manager Workers Compensation Name Role Phone Pcp, No Primary Care Provider Unavailabl e Encounter Details Date Type Department Care Team ([facility] st Contact Info) Description 11/18/2024 Orders Only External Location [address] [place] [address] Provider, External Social History Tobacco Use Types [...] Date/Time Associated Diagnosis Comments CT OUTSIDE IMAGES 11/18/2024 6:20 PM EDT documented in this encounter Results * CT OUTSIDE IMAGES (11/18/2024 6:20 PM EDT) Anatomical Region Laterality Modality Computed Tomogra phy 11/18/2024 6:20 PM EDT us External Provider IMG CT PROCEDURES Final Result documented in this encounter Visit Diagnoses Not on filedocumented in this encounter Care Teams Manager Workers Compensation Relationship Specialty Start Date End Date Pcp, No [address] [place] [address] PCP - General Family Medicine 12/08/24 documented as of this encounter
--- OUTSIDE RECORDS SUMMARY | 2024-12-24 14:13 | XMS_ITS | Clinical Summary ---
Author Organization Healthcare Address [address] [place] [address] Care Team Providers Care Service Center Specialist Name Role Phone Pcp, No Primary Care Provider Unavailabl e Encounters Date Type Department Care Team Description 12/21/2024 10:45 AM EDT Ancillary Procedure [address] [place] [address] Chest pain 12/21/2024 Orders Only External Location [address] [place] [address] Sarah Moore, FOOD STAND MANAGER 11/18/2024 Orders Only External Location [address] [place] [address] Provider, External 11/18/2024 Orders Only External Location [address] [place] [address] Provider, External from Last 3 Months Social History Tobacco Use Types Packs/Day Years Used Date Smoking Tobacco: Never Assessed Sex and Gender Information Value Date Recorded Sex Assigned at Not on file Legal Sex Male 8:41 PM EDT Gender Identity Not on file Sexual Orientation Not on file Plan of Treatment Health Maintenance Due Date Last Done Comments [facility]-Depression Screening 1999 [facility]-Infant/Child/Adol SDOH Screenings 1999 [facility]-Varicella Vaccines (1 of 2 - 13+ 2-dose series) 2012 HPV Vaccines (1 - Male 3-dos e series) 2014 [facility]- SDOH Screenings 2017 [facility]-Adult SDOH Screenings 2017 [facility]-DTaP,Tdap,and Td Vaccine s (1 - Tdap) 2018 [facility]-Hepatitis B Vaccines (1 of 3 - 19+ 3-dose series) 2018 OON-YPFJT-89 Vaccine (1 - 20 24-25 season) 2024 [facility]-Influenza Vaccine (#1) 2025 [facility]-Zoster Vaccines (1 of 2) 2049 [facility]-HIB Vaccines Aged Out No longer e ligible based on patient's age to complete this topic [facility]-Hepatitis A Vaccines Aged Out No longer eligible based on patient's age to complete this topic [facility]-IPV Vaccines Aged Out No longer e ligible based on patient's age to complete this topic [facility]-Pneumococcal Vaccine: Pediatrics (0 to 5 Years) and At-Risk Patients (6 to 49 Years) Aged Out No long er eligible based on patient's age to complete this topic [facility]-Rotavirus Vaccines Aged Out No lo nger eligible based on patient's age to complete this topic Procedures Procedure Name Priority Date/Time Associated Diagnosis Comments CT ANGIO CARDIAC CORONARY ARTERIES Routine 12/21/2024 10:42 [address] EDT Chest pain CT OUTSIDE IMAGES 12/21/2024 9:3 9 AM EDT XR THORACIC OUTSIDE IMAGES 11/18/2024 6:[address] OUTSIDE IMAGES 11/18/2024 6:2 0 PM EDT from Last 3 Months Results * CT Angio Cardiac Coronary Arteries [...] Data Image Acquisition: Images were acquired at [facility] in [place], and interpreted at [facility]. A 128-slice MDCT scanner ([employer] View) was used for data acquisition. A [...] was reviewed interactively on an advanced workstation (Picosun) capable of 2 and 3 dimensional displays [...] Data Image Acquisition: Images were acquired at [facility] in [place], andinterpreted at [facility]. A 128-slice MDCT scanner (KIWATCH) was used for data acquisition. A non-contrast [...] Data wasreviewed interactively on an advanced workstation (Picosun) capable of 2and 3 dimensional displays in [...] on 12/22/2024 4:33 AM us Sarah Moore APRN IMG CT PROCEDURES Final Resu lt * CT OUTSIDE IMAGES (12/21/2024 9:39 AM EDT) Only the most recent of2 resultswithin the time period is included. Anatomical Region Laterality Modality Computed Tomogra phy 12/21/2024 9:39 AM EDT us Sarah Moore APRN IMG CT PROCEDURES Final Resu lt * XR THORACIC OUTSIDE IMAGES (11/18/2024 6:21 PM EDT) Anatomical Region Laterality Modality Radiographic Radha ging 11/18/2024 6:21 PM EDT us External Provider IMG XR PROCEDURES Final Result from Last 3 Months Insurance Care Teams Service Center Specialist Relationship Specialty Start Date End Date Pcp, [place] [address] PCP - General Family Medicine 12/08/24
--- OUTSIDE RECORDS SUMMARY | 2024-12-24 14:13 | XMS_ITS | Clinical Summary ---
Author Organization [facility] Address [address] [place] [address] Phone CareEverywhereSuppor t@[employer] Care Team Providers Care Director Gift Name Role Phone Unavailable Primary Care Provider Unavailabl e Allergies No known active allergies Medications tadalafil (CIALIS) 5 MG tablet Take 5 mg by mouth 1 (one) time each day. 04/27/2024 Active ergocalciferol (VITAMIN D2) 1.25 MG (76423 UT) capsule TAKE 1 CAPSULE BY MOUTH [...] 11/20/2024 4:00 PM EDT Clinical Support [facility] [address] [place] [address] Dana Rivera, RN Return to work evaluation (Primary Dx) 11/19/2024 Telephone [address] [place] [address] No, Pcp 11/17/2024 8:30 PM EDT Clinical Support [facility] [address] [place] [address] Luana Miranda PA Chest pain, unspecified type (Primary Dx); Dizziness; Tonsillitis 11/02/2024 Documentation [facility] [address] [place] [address] Abelino, Arsen 09/30/2024 [facility]ation [facility] [address] [place] [address] Abelino, Arsen 09/30/2024 Documentation [facility] [address] [place] [address] Abelino, Arsen from Last 3 [...] on file 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
== END ==
LOC: SL 14:11
PROVIDERS: PCP Nurse Practitioner Family; Visit Provider Specialist
DX: G47.33 Obstructive sleep apnea (adult) (pediatric) (principal); G47.36 Sleep related hypoventilation in conditions classified elsewhere

== ENCOUNTER 2025-01-07 15:22 | Outpatient (CLI) | payer BC, SELFPAY ==
--- OUTSIDE RECORDS SUMMARY | 2024-11-17 20:30 | XMS_ITS | Encounter Summary ---
Author Organization [facility] Address [address] [place] [phone] Phone [email or web address] [email or web address] Care Team Providers Care Office Receptionist Name Role Phone Unavailable Primary Care Provider Unavailabl e Reason for Visit * Reason Comments Health Center Offerings Encounter Details Date Type Department Care Team (Latest Contact Info) Description 11/17/2024 8:30 PM EDT Clinical Support TIMOTEO Menezes [facility] [address] [place] [address] Luana Miranda PA [address] [place] [address] Chest pain, unspecified type (Primary Dx); Dizziness; Tonsillitis Social History Tobacco Use Types Packs/Day Years Used Date Smoking Tobacco: Every Day E-Cigarettes Smokeless Tobacco: Never Tobacco Cessation:Ready to Q uit: Not Asked; Counseling Given: Not Answered Depression Answer Date Recorded PHQ Total Score 0 11/17/2024 Stress Answer Date Recorded Stress in your Life Not on file 04/02/2024 Dealing with Stress 3 04/02/2024 Sex and Gender Information Value Date Recorded Sex Assigned at Not on file 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 TM is choosing to go home. F/u PCP or specialist DARCIE. D/c Vape use advised. TM is declining ER currently and advised to go if concerns and discussed limitations of testing available at [facility]. RTW tomorrow if resolved, o/w RTC with release to RTW note. documented in this encounter Progress Notes * RODOLFO Santiago - 11/17/2024 8:30 PM EDT Subjective Chris Greenberg is a 24 y.o. male. 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 Onset: ~1914 Symptoms: chest tightness, SOA, dizziness, weakness in BUE Transported TM back to [place] [address] via [employer] without stretcher. Notes: on arrival to scene TM is seated line side with GL present. 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 TM reports he also felt SOA at that time. He states discomfort would ebb and flow, with worst discomfort rated at 7/10. TM states his hands began to feel numb, and he began to feel dizzy. He states he was waiting for symptoms to go away but when they did not, he finishedthe run he was on and told his GL. Reports diagnosed history of sinus tachycardia, hypoglycemia, and hypertension. Family history of cardiac disease. TM agreeable to transport to [place] [address] for eval. On arrival to clinic EKG obtained, showing NSR with nonspecific septal T wave abnormality. POCT glucose WNL at 74. Orthostatic vital signs obtained. TM reports eating well today, drinking approximately 36 oz of water, and consuming 1 cup of coffee. Triage nurse: GR RN This was an emergency call with a disruption in patient care and scheduled clinic appointments. History Reviewed: Tobacco Allergies Meds Problems Med Hx Surg Hx See CC above TM is here for Emergency Evaluation after tones dropped for LH/Dizzy, Chest pain. TM states he has had sternal tightness radiating to the left shoulder since being at work, worse on Buff process- which he states is not strenuous and he uses his right arm with buffer. TM states SOA, no palpitations.Symptoms resolved while at [facility]. Given PB crackers and oral hydration. TM states he has felt lethargic. No energy drink. + Vape use. TM states hx of HBP, and CHANG; uses a BIPAP. TM states last year he wore a Holter Monitor and told tachycardia and Increased BP. TM states Mom and Sister with CHF. TM states lethargy, no sore throat. Strep negative; discussed mono or repeat testing if symptoms persist. FSBS 74. EKG NSR, HR 66. Review of Systems Constitutional: Positive for fatigue. HENT: Negative for sore throat. Respiratory: Positive for shortness of breath. Cardiovascular: Positive for chest pain. Negative for palpitations. Gastrointestinal: Negative for nausea and vomiting. Neurological: Positive for dizziness and light-headedness. Psychiatric/Behavioral: The patient is nervous/anxious. PHQ-9 Total Score: 0 (11/17/2024 8:06 PM) Objective Vitals: 11/17/241944 BP: 130/89 Pulse: 90 SpO2: 96% Orthostatic Vitals: 11/17/24200311/17/24200411/17/242005 Orthostatic BP: 133/64 135/75 133/93 Patient Position: Lying Sitting Standing Orthostatic Pulse: 72 80 86 Results for orders placed or performed in visit on 11/17/24 POCT glucose Collection Time: 11/17/24 8:25 PM Result Value Ref Range Glucose, POC 74 65 - 99 mg/dL Glucose (Glucometer), POC IQC Yes, verified internal control performed correctly. Lot Number er1 Expiration Date er1 POCT Rapid Strep A Collection Time: 11/17/24 8:42 PM Result Value Ref Range STREP A, POC Negative Negative, Inconclusive Strep A, POC IQC Yes, verified internal control performed correctly. Lot Number [id number] Expiration Date 01/02/2025 Physical Exam Vitals and nursing note reviewed. Constitutional: General: He is not in acute distress. Appearance: Normal appearance. He is well-developed. He is not ill-appearing. HENT: Mouth/Throat: Mouth: Mucous membranes are moist. Pharynx: Oropharyngeal exudate (minimal left tonsil, enlarged tonsils) present. Eyes: Extraocular Movements: Extraocular movements intact. Pupils: Pupils are equal, round, and reactive to light. Cardiovascular: Rate and Rhythm: Normal rate and regular rhythm. Pulses: Normal pulses. Heart sounds: Normal heart sounds. Pulmonary: Effort: Pulmonary effort is normal. No respiratory distress. Breath sounds: Normal breath sounds. Abdominal: General: Bowel sounds are normal. Palpations: Abdomen is soft. Tenderness: There is no abdominal tenderness. Musculoskeletal: General: No swelling. Cervical back: Neck supple. No tenderness. Skin: General: Skin is warm and dry. Neurological: Mental Status: He is alert. Cranial Nerves: No cranial nerve deficit. Sensory: No sensory deficit. Motor: No abnormal muscle tone. Psychiatric: Mood and Affect: Mood normal. Behavior: Behavior normal. Thought Content: Thought content normal. Assessment: ICD-10-CM ICD-9-CM 1. Chest pain, unspecified type R07.9 786.50 ECG 12 lead POCT Rapid Strep A 2. Dizziness R42 780.4 POCT glucose 3. Tonsillitis J03.90 463 Orders Placed This Encounter Procedures POCT glucose POCT Rapid Strep A ECG 12 lead Patient Instructions TM is no longer having LH/Dizzy, CP is almost resolved. TM is choosing to go home. F/u PCP or specialist DARCIE. D/c Vape use advised. TM is declining ER currently and advised to go if concerns and discussed limitations of testing available at [facility]. RTW tomorrow if resolved, o/w RTC with release to RTW note. documented in this encounter Plan of Treatment Not on file documented as of this encounter Procedures Procedure Name Priority Date/Time Associated Diagnosis Comments ECG 12-LEAD Routine 11/17/2024 9:06 PM EDT Chest pain, unspecified type POCT RAPID STREP A Routine 11/17/2024 8: 42 PM EDT Chest pain, unspecified type POCT GLUCOSE Routine 11/17/2024 8:25 PM EDT Dizziness documented in this encounter Results * ECG 12 lead (11/17/2024 9:06 PM EDT) Luana Medellin PA - 11/17/2024 9:06 PM EDT NSR: HR 66 us Luana REYNOLDS ECG ORDERABLES Final Result * POCT Rapid Strep A (11/17/2024 8:42 PM EDT) STREP A, POC Negative Negative, Inconclusive Strep A, POC IQC Yes, verified internal control performed correctly. Lot Number [id number] Expiration Date 01/02/2025 Swab 11/17/2024 8:42 PM EDT us Luana REYNOLDS POINT OF CARE TEST ORDERABLE S Final Result * POCT glucose (11/17/2024 8:25 PM EDT) Glucose, POC 74 65 - 99 mg/dL Glucose (Glucometer), POC IQC Yes, verified internal control performed correctly. Lot Number er1 Expiration Date er1 Blood (Blood, Capillary) 11/17/2024 8:25 PM EDT us Luana REYNOLDS POINT OF CARE TEST ORDERABLE S Final Result documented in this encounter Visit Diagnoses Diagnosis Chest pain, unspecified type- Primary Dizziness Dizziness and giddiness Tonsillitis Acute tonsillitis documented in this encounter
--- OUTSIDE RECORDS SUMMARY | 2024-11-20 16:00 | XMS_ITS | Encounter Summary ---
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 WD ID: [id number] Employer: [employer]: [id number] Shift: 2nd Full-time GL and #: Andrea Chaidez LDW: 11/17/24 DOS: N/A PROCEDURE: N/A SURGEON: N/A RELEASE: Regular Duty 11/20/24 PMLOA. TM states he went to [facility] ER on 11/18 and had [...] also plans to touch base with his receiver stocker to consult about his persistent tachycardia. TM [...]
--- OUTSIDE RECORDS SUMMARY | 2024-12-21 10:45 | XMS_ITS | Encounter Summary ---
Author Organization Healthcare Address [address] [phone] Care Team Providers Care Credit Office Manager Name Role Phone Pcp, No Primary Care Provider Unavailabl e Encounter Details Date Type Department Care Team (Late st Contact Info) Description 12/21/2024 10:45 AM EDT Ancillary Procedure [address] [place] [phone] Chest pain Social History Tobacco Use Types [...] Data Image Acquisition: Images were acquired at [facility] in [place], and interpreted at [facility]. A 128-slice MDCT scanner (Fathom Onlinea View) was used for data acquisition. A [...] was reviewed interactively on an advanced workstation (Gruvi) capable of 2 and 3 dimensional displays [...] Data Image Acquisition: Images were acquired at [facility] in [place], andinterpreted at [facility]. A 128-slice MDCT scanner ([employer]) was used for data acquisition. A non-contrast [...] Data wasreviewed interactively on an advanced workstation (Gruvi) capable of 2and 3 dimensional displays in [...] MD on 12/22/2024 4:33 AM us Sarah oMore GREENHOUSE INSTRUCTOR IMG CT PROCEDURES Final Resu lt documented in this encounter Visit Diagnoses Diagnosis Chest pain Unspecified chest pain documented in this encounter Care Teams Credit Office Manager Relationship Specialty Start Date End Date Pcp, No [address] [place] [address] PCP - General Family Medicine 12/08/24 documented as of this encounter
--- OUTSIDE RECORDS SUMMARY | 2024-12-25 07:58 | XMS_ITS | Continuity of Care Document ---
Author Organization [facility] Address [address] [place] [address] Phone Care Team Providers Care Pilot [employer] Name Role Phone Zafar MSN, DISTANCE LEARNING TECHNICIAN, [place] Unavailable Unavai lable Allergies, Adverse Reactions, Alerts Substance Reaction Status Criticality No Known Allergies Active No Inform ation Medications Medication Instructions Dosage Effective Dates (start - stop) Status Comments FLUOXETINE 20MG CAPSULES TAKE 1 CAPSULE BY MOUTH EVERY DAY IN THE MORNING - Active tenofovir disoproxil fumarate 300 mg [...] Location Reason(s) For Visit Diagnoses Date Provider [facility], [address] [place], [address], tel:[phone] No Information Zafar [place]. [address] [place] [address], [id number] , . tel:[phone] [facility], [address] [place], [address], tel:[phone] [facility] ER Follow up (chief complaint)Pos sible anal Fistula (chief complaint) Body mass index [BMI] 25.0-25.9, adultPalpitationsChron ic anal fissure 5 Stephen Paris. [address] [place], [place], [id number] , . tel: [phone] [facility], [address] [place] [address], [facility], tel:[phone] [facility] f/u medication (chief complaint) Generalized Anxiety DisorderMajor depressive disorder, recurrent, mildBody mass index [BMI] 25.0-25.9, adult Aug- 5 Stephen Paris. [address] [place], [place], [id number] , . tel: [phone] [facility], [address] [place] [address], [facility], tel:[phone] [facility] Follow up on Medication (chief complaint) Body mass index [BMI] 24.0-24.9, adultGeneralized Anxiety DisorderMajor depressive disorder, recurrent, mildVitamin B12 deficiencyEncounter for HIV pre-exposure prophylaxis 5 Stephen Paris. [address] [place] [address], [id number] , . tel: [phone] [facility], [address] [place] [address], [facility], tel:[phone] [facility] FMLA papers/accomm odation request (chief complaint) Stress, not elsewhere classifiedGeneralized Anxiety DisorderEncounter for issue of other medical certificate 5 Stephen Paris. [address] [place] [address], [id number] , . tel: [phone] [facility], [address] [place] [address], [facility], tel:[phone] [facility] fasting labs (chief complaint)anx iety issues (chief complaint) Vitamin B12 deficiencyGeneralized Anxiety DisorderMajor depressive disorder, recurrent, mildEncounter for immunizationBody mass index [BMI] 25.0-25.9, adult Fe 5 Stephen Paris. [address] [place], [place], [id number] , [place]. tel:[phone] [facility], [address] [place] [address], [facility], tel:[phone] [facility] No Information 4 Stephen Paris. [address] [place], [place], [id number] , [place]. tel:[phone] [facility], [address] [place] [address], [facility], tel:[phone] [facility] No Information 4 Albert Moncada. [address] [place], [place], [id number] , . tel:[phone] [facility], [address] [place] [address], [facility], tel:[phone] [facility] Fatigue (chief complaint)Con cerned about sleep apnea. (chief complaint)sor e throat (chief complaint) FatigueApnea, not elsewhere classifiedPharyngitisS noringBody mass index [BMI] 24.0-24.9, adultEncounter for screening for COVID-19 4 Stephen Paris. [address] [place], [place], [id number] , [place]. tel:[phone] [facility], [address] [place] [address], [facility], [place] tel:[phone] [facility] B12 Injection (chief complaint) Vitamin B12 deficiency 4 Stephen Paris. [address] [place], [place], [id number] , [place]. tel: [phone] [facility], [address] [place] [address], [facility], tel:[phone] [facility] B12 INJECTION (chief complaint) Vitamin B12 deficiency September-3 0-202 4 Stephen Paris. [address] [place], [place], [id number] , [place]. tel: [phone] [facility], [address] [place] [address], [facility], tel:[phone] [facility] b12 injection (chief complaint) Vitamin B12 deficiency September-2 1- 4 Stephen Paris. [address] [place], [place], [id number] , . tel: [phone] [facility], [address] [place] [address], [facility], tel:[phone] [facility] F/u on testing (chief complaint)b12 injection # 3 of 6 (chief complaint)kym h on rt wrist (chief complaint) Body mass index [BMI] 22.0-22.9, adultTachycardia, unspecifiedVitamin B12 deficiencyRash September-1 4-202 4 Stephen Paris. [address] [place], [place], [id number] , [place]. tel: [phone] [facility], [address] [place] [address], [facility], [place] tel:[phone] [facility] [place] B12 INJECTION (chief complaint) Vitamin B12 deficiency September-0 7-202 4 Stephen Paris. [address] [place], [place], [id number] , [place]. tel: [phone] [facility], [address] [place] [address], [facility], [place] tel:[phone] [facility] [place] f/u labs (chief complaint) PalpitationsVitamin B12 deficiencyBody mass index [BMI] 22.0-22.9, adultGeneralized Anxiety Disorder Apr-3 4 Stephen Paris. [address] [place], [place], [id number] , [place]. tel:[phone] [facility], [address] [place], [address], [place] tel:[phone] [facility] Establishing Care (chief complaint) Extreme povertyUnemployment, unspecifiedEncounter for screening for diseases of the blood and blood-forming organs and certain disorders involving the immune mechanismBody mass index [BMI] 21.0-21.9, adultGeneralized Anxiety DisorderMajor depressive disorder, recurrent, mildEncounter for screening for diabetes mellitusEncounter for screening for human immunodeficiency virus [HIV]Encounter for screening for other viral diseases Apr- 4 Albert Moncada. [address] [place], [place], [id number] , [place]. tel:[phone] Family History Family Member Type Diagnosis Age [...] dosage, for intramuscular use administered Source: Stefani kay Immunization Record COVID-19 mRNA (PFR) administered Source: [...] Insurance type Covered libertarian ID Authoriza tion(s) [employer] [facility] [id number] [facility]- Medicaid Aet[employer] [place] [id number] [facility]- Medicaid Aetna Wrap Payer [id number] [employer] [facility] [id number] [facility]- Medicaid [employer]illion Bcbs BL [id number] [facility]- Medicaid [employer] Wrap Payer [id number] 1 [employer] [facility] [id number] [facility]- Medicaid [employer] Bc[employer] BL [id number] [facility]- Medicaid [employer]illion Wrap Payer [id number] 1 Social History Type Description Quantity Date Captured Comments Sex Male Smoking Status No Information Sexual Orientation Bisexual Gender Identity Male Chief [...] due Goal Obtain Height, Weight, and B WV. Due on due Goal Vitamin D. Due on due Goal Lifestyle education regardin g diet completed Goal Hepatitis C Screening due Goal CBC. Due on due Goal Follow up Plan f or abnormal BMI (Less than 18.5, greater than 25). Due on due Goal Tobacco screening. Due on due Goal Vitamin D. Due on due Goal Tobacco Use Screening. Due o n due Goal Influenza vaccine. Due on due Goal Obtain Height, Weight, and B WV. Due on due Goal Depression screening. Due [...] on due Goal HIV screen due Goal Lipid panel. Due on due Goal Lifestyle education regardin g diet completed Goal Tobacco screening. Due on due Goal Hepatitis C Screening due Goal CMP. Due on due Goal Vitamin [...] due Goal Obtain Height, Weight, and B WV. Due on due Goal Unhealthy drug use screening due Goal CBC. Due on due Goal Lifestyle education regardin g diet completed Goal Vitamin D. Due on due Goal CMP. Due on due Goal Vitamin B12. Due on due Goal Tobacco Use Cess ation Counseling. Due on due Goal Follow up Plan f or abnormal BMI (Less than 18.5, greater than 25). Due on due Goal Obtain Height, Weight, and B WV. Due on due Goal Hepatitis C Screening due Goal Tobacco Use Screening. Due o n due Goal Generalized Anxi ety Disorder - 7 (NICOLE-7). Due on due Goal Lipid panel. Due on due Goal Depression screening. Due on due Goal Drug Abuse Scree sumeet Test (DAST-10). Due on due Goal Diabetes screening. Due on F due Goal Unhealthy drug use screening due Goal CBC. Due on due Goal HIV screen due Goal Influenza vaccine. Due on due Goal Obtain Height, Weight, and B WV. Due on due Goal Generalized Anxi ety [...] Goal Depression screening. Due on due Goal Vitamin B12. Due on 026 due Goal CMP. Due on due Goal Diabetes screening. Due on due Goal CBC. Due on due Goal Follow up Plan f or abnormal BMI (Less than 18.5, greater than 25). Due on due Goal HIV screen due Goal Lipid panel. Due on 039 due Goal Influenza vaccine. Due on due Goal Lifestyle education regardin g diet completed Goal Vitamin B12. Due on 025 due Goal Unhealthy drug use screening due Goal Obtain Height, Weight, and B WV. Due on due Goal Tobacco Use Screening. Due o n due Goal Influenza vaccine. Due on Oc due Goal CBC. Due on due Goal HIV screen due Goal Depression screening. Due on due Goal Generalized Anxi ety Disorder - 7 (NICOLE-7). Due on due Goal Lipid panel. Due on due Goal Diabetes screening. Due on A due Goal Vitamin D. Due on due Goal Hepatitis C Screening due Goal Follow up Plan f or abnormal BMI (Less than 18.5, greater than 25). Due on due Goal Drug Abuse Scree sumeet Test (DAST-10). Due on due Goal Tobacco Use Cess ation Counseling. Due on due Goal CMP. Due on due Goal Influenza vaccine. Due [...] due Goal Obtain Height, Weight, and B WV. Due on due Goal Hepatitis C Screening due Goal Vitamin D. Due on due Goal Generalized Anxi ety Disorder - 7 (NICOLE-7). Due on due Goal Lifestyle education regardin g diet completed Goal Tobacco Use Screening. Due o n due Goal Generalized Anxi ety Disorder - 7 (NICOLE-7). Due on due Goal CMP. Due on due Goal Unhealthy drug use screening due Goal Depression screening. Due on due Goal Follow up Plan f or abnormal BMI (Less than 18.5, greater than 25). Due on due Goal Obtain Height, Weight, and B WV. Due on due Goal Vitamin B12. Due on 025 due Goal HIV screen due Goal Diabetes [...] due Goal Obtain Height, Weight, and B WV. Due on due Goal CBC. Due on due Goal Influenza vaccine. Due on due Goal Follow up Plan f or abnormal BMI (Less than 18.5, greater than 25). Due on due Goal Depression screening. Due on due Goal Hepatitis C Screening due Goal Unhealthy drug use screening due Goal Lipid panel. Due on due Goal CBC. Due on due Goal Obtain Height, Weight, and B WV. Due on due Goal Tobacco Use Screening. [...] Goal Vitamin B12. Due on due Goal Vitamin B12. Due [...] due Goal Obtain Height, Weight, and B WV. Due on due Goal Generalized Anxi ety Disorder - 7 (NICOLE-7). Due on due Goal Lifestyle education regardin g diet completed Goal Depression screening. Due on due Goal Obtain Height, Weight, and B WV. Due on due Goal CMP. Due on [...] Influenza vaccine. Due on due Goal Vitamin B12. Due on due Goal CBC. Due on due Goal Vitamin D. Due on due Goal Lipid panel. Due on due Goal Generalized Anxi ety Disorder - 7 (NICOLE-7). Due on due Goal Drug Abuse Scree sumeet Test (DAST-10). Due on due Goal Obtain Height, Weight, and B WV. Due on due Goal Generalized Anxi ety Disorder - 7 (NICOLE-7). Due on due Goal Diabetes screening. Due on due Goal Lipid panel. Due on due Goal Drug Abuse Scree sumeet Test (DAST-10). Due on due Goal CBC. Due on due Goal Follow up Plan f or abnormal BMI (Less than 18.5, greater than 25). Due on due Goal HIV screen due Goal Depression screening. Due on due Goal Influenza vaccine. Due on due Goal Tobacco Use Screening. Due o n due Goal Vitamin D. Due on due Goal Vitamin B12. Due on due Goal Tobacco Use Cess ation Counseling. Due on due Goal Unhealthy drug use screening due Goal CMP. Due on due Goal Hepatitis C Screening due Goal Lifestyle education regardin g diet [...] Lipid panel. Due on 039 due Goal Generalized Anxi ety Disorder - 7 (NICOLE-7). Due on due Goal HIV screen due Goal CMP. Due on due Goal Obtain Height, Weight, and B WV. Due on due Referral Ordered: Referrals: Cardiology. Evaluate and treat Appointment date/timeframe: 12/03/2024 ordered Referral Referred To: April Yo APRN [address] [place], [place], [id number] Ordered: Referrals: Psychiatry. April Yo APRN. Location: [facility]. Evaluate and treat Appointment date/timeframe: 08/28/2024 ordered [facility] Ordered: Referrals[facility]. [facility] Location: [place]. Evaluate and treat Appointment date/timeframe: 04/30/2024 ordered Referral Referred To: [facility] Ordered: Referrals: Cardiology. [facility]. Location: [place]. Diagnostic testing Appointment date/timeframe: 1 Day ordered Appointment Lc Greenberg - Vida (Iwona ramos) BOOKED History Of Present Illness Encounter Date Complaint History Of Prese nt Illness ER Follow up Lc is here today to follow up from an ER visit. Suraj was in the ER on 11.18.24 at [facility] for chest pain. Pt was diagnosed [...] will repeat labs in [facility] papers/accommodation reques t Lc is here [...] higher risk for accidents. 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 He reports at least two panic attacks last week causing chest tightness and hyperventilation, where he has had to sit for a while to regain control of his anxiety. He reports it is so bad he is considering changing positions at [employer]. When his panic is so bad he [...] mg - previously written by Emiliana Lai, lighthouse keeper at [facility], has not been working as well. [...] higher risk for accidents. 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 He reports at least two panic attacks last week causing chest tightness and hyperventilation, where he has had to sit for a while to regain control of his anxiety. He reports it is so bad he is considering changing positions at [employer]. End of Feb, grandfather and sister [...] he is feeling better since starting the [employer] races at times when he has heightened [...] sent to pharmacy and he confirms is [id number] 340- reports low energy- will start a 6 week series of b12 injections. Encouraged low fat, vitamin rich dietTotal Cholesterol 202LDL 131HDL 49 and Trigs 99Today he states he was started on Prozac 20 mg for his anxiety/depression by MAIKEL [facility]egasHNP [facility] is doing ok with [...] adult; and Caloric intake should be around 1119-8558 for a female, and 6968-4129 for an adult male. Fiber intake should [...] are recommend to be 13-30 grams each. [employer] is a good source for meal planning and dietary education. You may also refer to the [place] [employer] website for further low sodium, [...] been ordered for you to go and supervisor opening and picking at [facility]. Wear the monitor for 72 hrs [...] diet, body weight. Follow a low calorie (2823-7553 calories/day depending on activity levels) to achieve [...]
--- OUTSIDE RECORDS SUMMARY | 2025-01-07 15:23 | XMS_ITS | Encounter Summary ---
Author Organization Healthcare Address [address] [place] [address] Care Team Providers Care Soil Tester Name Role Phone Pcp, No Primary Care Provider Unavailabl e Encounter Details Date Type Department Care Team ([facility] st Contact Info) Description 12/21/2024 Orders Only External Location [address] [place] [address] Sarah Moore, JENAE [address] [facility] [address] [id number] Social History Tobacco Use Types Packs/Day Years [...] on filedocumented in this encounter Care Teams Soil Tester Relationship Specialty Start Date End Date Pcp, No [address] [place] [address] PCP - General Family Medicine 12/08/24 documented as of this encounter
--- OUTSIDE RECORDS SUMMARY | 2025-01-07 15:23 | XMS_ITS | Encounter Summary ---
Author Organization Healthcare Address [address] [place] [address] Care Team Providers Care Railroad Brake Operator Name Role Phone Pcp, No Primary Care Provider Unavailabl e Encounter Details Date Type Department Care Team ([facility] st Contact Info) Description 11/18/2024 Orders Only External Location [address] [place] [address] Provider, External Social History Tobacco Use Types [...] on filedocumented in this encounter Care Teams Railroad Brake Operator Relationship Specialty Start Date End Date Pcp, No [address] [place] [address] PCP - General Family Medicine 12/08/24 documented as of this encounter
--- OUTSIDE RECORDS SUMMARY | 2025-01-07 15:23 | XMS_ITS | Clinical Summary ---
Author Organization [facility] Address [address] [place] [address] Phone [email or web address] Care Team Providers Care Motor Hotel Manager Name Role Phone Unavailable Primary Care Provider Unavailabl e Allergies No known active allergies Medications tadalafil (CIALIS) 5 MG tablet Take 5 mg by mouth 1 (one) time each day. 04/27/2024 Active ergocalciferol (VITAMIN D2) 1.25 MG (61916 UT) capsule TAKE 1 CAPSULE BY MOUTH [...] Description 11/20/2024 4:00 PM EDT Clinical Support [facility] [address] [place] [address] Dana Rivera, RN Return to work evaluation (Primary Dx) 11/19/2024 Telephone [address] [place] [address] No, Pcp 11/17/2024 8:30 PM EDT Clinical Support [facility] [address] [place] [address] Luana Miranda PA Chest pain, unspecified type (Primary Dx); Dizziness; Tonsillitis 11/02/2024 Documentation [facility] [address] [place] [address] Arsen Roca from Last 3 Months Social History Tobacco [...] on file 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
--- OUTSIDE RECORDS SUMMARY | 2025-01-07 15:23 | XMS_ITS | Encounter Summary ---
Author Organization Healthcare Address [address] [place] [address] Care Team Providers Care Hunting Sales Associate Name Role Phone Pcp, No Primary Care Provider Unavailabl e Encounter Details Date Type Department Care Team ([facility] st Contact Info) Description 11/18/2024 Orders Only External Location [address] [place] [address] Provider, External Social History Tobacco Use Types [...] on filedocumented in this encounter Care Teams Hunting Sales Associate Relationship Specialty Start Date End Date Pcp, No [address] [place] [address] PCP - General Family Medicine 12/08/24 documented as of this encounter
--- OUTSIDE RECORDS SUMMARY | 2025-01-07 15:23 | XMS_ITS | Clinical Summary ---
Author Organization Healthcare Address [address] [place] [address] Care Team Providers Care Teachers' Assistant Name Role Phone Pcp, No Primary Care Provider Unavailabl e Encounters Date Type Department Care Team Description 12/21/2024 10:45 AM EDT Ancillary Procedure [address] [place] [address] Chest pain 12/21/2024 Orders Only External Location [address] [place] [address] Sarah Moore, FLOOR MOLDER 11/18/2024 Orders Only External Location [address] [place] [address] Provider, External 11/18/2024 Orders Only External Location [address] [place] [address] Provider, External from Last 3 Months Social History Tobacco Use Types Packs/Day Years Used Date Smoking Tobacco: Never Assessed Sex and Gender Information Value Date Recorded Sex Assigned at Not on file Legal Sex Male 8:41 PM EDT Gender Identity Not on file Sexual Orientation Not on file Plan of Treatment Health Maintenance Due Date Last Done Comments [facility]-Depression Screening 1999 [facility]-/Child/Adol SDOH Screenings 1999 [facility]-Varicella Vaccines (1 of 2 - 13+ 2-dose series) 2012 HPV Vaccines (1 - Male 3-dos e series) 2014 [facility]- SDOH Screenings 2017 [facility]-Adult SDOH Screenings 2017 [facility]-DTaP,Tdap,and Td Vaccine s (1 - Tdap) 2018 [facility]-Hepatitis B Vaccines (1 of 3 - 19+ 3-dose series) 2018 [facility]-HSTNH-43 Vaccine (1 - 20 24-25 season) 2024 [...] Data Image Acquisition: Images were acquired at [facility] [place], and interpreted at [facility]. A 128-slice MDCT scanner (VirtualLogixa View) was used for data acquisition. A [...] was reviewed interactively on an advanced workstation (TRANSCORP) capable of 2 and 3 dimensional displays [...] Data Image Acquisition: Images were acquired at [facility] [place], andinterpreted at [facility]. A 128-slice MDCT scanner (The Clearing) was used for data acquisition. A non-contrast [...] Data wasreviewed interactively on an advanced workstation (TRANSCORP) capable of 2and 3 dimensional displays in [...] from Last 3 Months Insurance Care Teams Teachers' Assistant Relationship Specialty Start Date End Date Pcp, [place] [address] PCP - General Family Medicine 12/08/24
--- OUTSIDE RECORDS SUMMARY | 2025-01-07 15:24 | XMS_ITS | Encounter Summary ---
Author Organization [facility] Address [address] [place] [address] Phone [email or web address] Care Team Providers Care Air Value Tester Name Role Phone Unavailable Primary Care Provider Unavailabl e Encounter Details Date Type Department Care Team (Late st Contact Info) Description 11/19/[address] [address] No, [place] [address] Social History Tobacco Use Types Packs/Day Years Used Date Smoking Tobacco: Every Day E-Cigarettes Smokeless Tobacco: Never Depression Answer Date Recorded PHQ Total Score 0 11/17/2024 Stress Answer Date Recorded Stress in your Life Not on file 04/02/2024 Dealing with Stress 3 04/02/2024 Sex and Gender Information Value Date Recorded Sex Assigned at Not on file 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
[2025-01-07 15:56] LABS: Hematocrit 43.2 % (42.0-52.0); Hemoglobin 14.1 g/dL (14.1-18.0); Immature Granulocytes % 0.3 %; Mean Corpuscular HGB Conc 32.6 g/dL (31.8-35.4); Mean Corpuscular Hemoglobin 31.5 pg (27.0-31.2); Mean Corpuscular Volume 96.4 fl (80-94); Nucleated Red Blood Cells % 0 %; Platelet Count 255 K/mm3 (142-424); Red Blood Count 4.48 M/mm3 (4.60-6.20); Red Cell Distribution Width-SD 42.2 fL; White Blood Count 6.6 K/mm3 (4.8-10.8)
[2025-01-07 16:58] LABS: Albumin Level 4.7 g/dl (3.5-5.0); Chloride 104 mmol/L (98-107)
[2025-01-07 16:59] LABS: Potassium 4.5 mmoL/L (3.5-5.1); Sodium 140 mmol/L (136-145)
[2025-01-07 17:01] LABS: Alanine Aminotransferase 15 U/L (12-78); Anion Gap 11.5 mEq/L (5-15); Aspartate Amino Transferase 25 U/L (17-59); Bilirubin,Direct 0.1 mg/dl (0.0-0.4); Bilirubin,Indirect 0.7 mg/dL (0.0-0.9); Bilirubin,Total 0.8 mg/dl (0.2-1.3); Bilirubin,Unconjugated 0.6 mg/dL (0.0-1.1); Blood Urea Nitrogen 13 mg/dl (9-20); Carbon Dioxide 29 mmol/L (22.0-30.0); Cholesterol 174 mg/dl (140-200); Creatinine,Serum 1.00 mg/dl (0.66-1.25); Estimated Glomerular Filt Rate 91 ml/min (>60); GFR (African American) 110 ML/MIN (>60); Total Protein,Serum 7.4 g/dl (6.3-8.2); Triglycerides 272 mg/dl (30-150)
[2025-01-07 17:02] LABS: Alkaline Phosphatase 70 U/L (38-126); Calcium 9.2 mg/dl (8.4-10.2); Glucose 90 mg/dl (74-100); HDL Cholesterol 38 mg/dl (40-60); Iron 83 ug/dL (49-181); Magnesium 1.8 mg/dl (1.6-2.3)
[2025-01-07 17:11] LABS: Total Iron Binding Capacity 323 ug/dL (261-462)
[2025-01-07 17:21] LABS: Free T4 (Free Thyroxine) 1.13 ng/dl (0.78-2.19)
[2025-01-07 17:31] LABS: Thyroid Stimulating Hormone 1.11 uIU/mL (0.465-4.68)
[2025-01-07 18:16] LABS: Vitamin B12 546 pg/mL (239-931)
== END 2025-01-07 23:59 | disposition home or self-care (01) ==
LOC: LAB 15:22
PROVIDERS: PCP Nurse Practitioner Family; Visit Provider Nurse Practitioner Family
DX: M79.2 Neuralgia and neuritis, unspecified (principal); R42 Dizziness and giddiness; R06.02 Shortness of breath; Q28.9 Congenital malformation of circulatory system, unspecified; G25.81 Restless legs syndrome; R55 Syncope and collapse
CPT/HCPCS: 36415; 80048; 80061; 80076; 82607; 83540; 83550; 83735; 84439; 84443; 85025

== ENCOUNTER 2025-01-29 15:43 | Outpatient (CLI) | payer BC, SELFPAY ==
--- OUTSIDE RECORDS SUMMARY | 2024-12-21 10:45 | XMS_ITS | Encounter Summary ---
Author Organization Healthcare Address [address] [id number] Care Team Providers Care Justice Court Judge Name Role Phone Pcp, No Primary Care Provider Unavailabl e Encounter Details Date Type Department Care Team (Late st Contact Info) Description 12/21/2024 10:45 AM EDT Ancillary Procedure [address] [place] [id number] Chest pain Social History Tobacco Use Types Packs/Day Years Used Date Smoking Tobacco: Never Assessed Sex and Gender Information Value Date Recorded Sex Assigned at Not on file Legal Sex Male 8:41 PM EDT Gender Identity Not on file Sexual Orientation Not on file documented as of this encounter Plan of Treatment Not on file documented as of this encounter Procedures Procedure Name Priority Date/Time Associated Diagnosis Comments CT ANGIO CARDIAC CORONARY ARTERIES Routine 12/21/2024 10:42 AM EDT Chest pain documented in this encounter Results * CT Angio Cardiac Coronary Arteries (12/21/2024 10:42 AM EDT) Anatomical Region Laterality Modality Heart Computed Tomogra phy Impressions 12/22/2024 4:33 AM EDT 1. No coronary calcification with an Agatston score = 0 using the AJ-130 method. 2. Normal coronary arteries 3. CAD-RADS 0: Management recommendations: Reassurance. Consider non-atherosclerotic causes of chest pain. 4. No significant non coronary cardiac findings in particular normal cardiac chambers, non-coronary vessels in the field of view and unremarkable pericardium. 5. Extracardiac structures in the field of view are unremarkable. CRITICAL RESULT: No. COMMUNICATION: Per this written report. Drafted by Godfrey Goins MD on 12/21/2024 11:49 AM Final report signed by Godfrey Goins MD on 12/22/2024 4:33 AM Narrative 12/22/2024 4:33 AM EDT CLINICAL INDICATION: 24 years Male Symptoms: Chest pain with clinical features suggesting myocardial ischemia TECHNIQUE: Procedure Data Image Acquisition: Images were acquired at [facility] in [place], and interpreted at [facility]. A 128-slice MDCT scanner ([employer] View) was used for data acquisition. A non-contrast coronary calcium scan was initially performed. was performed. Bolus tracking in the ascending aorta with a threshold of 180HU. Immediately afterwards, ECG synchronized Cardiac CT was then performed from cardiac base to apex using retrospective gating with ECG tube current modulation. A total of 85 mL Isovue 370mg/mL contrast media was administered at 5 mL/sec followed by a saline flush using a biphasic injection protocol. A tube voltage of 120 kVp was used. The patient received the following medications prior to the Cardiac CT: 75mg of po metoprolol, 15mg of IV metoprolol, and 0.4mg sublingual nitroglycerin. The average heart rate at the time of acquisition was 70 bpm (64 bpm to 74 bpm) and mildly irregular. Image Reconstruction: Transaxial images were reconstructed at 0.63 mm slice thickness. Data was reviewed interactively on an advanced workstation (Consert) capable of 2 and 3 dimensional displays in all conventional reconstruction formats including multiplanar reformations, maximum intensity projections, curved multiplanar reformations, and volume rendered reconstructions. Selected routine images displaying relevant coronary anatomy and pathology were saved and sent to PACS. Complications: None Technical Quality: Overall image quality is Average due to breathing motion artifact and high heart rate Coronary artery opacification is Adequate Total DLP (Dose-Length Product): 1743.4mGycm. (24.4 mSv) Please note: The reported value represents the total of one or more individual components during the CT acquisition on this date and at this time, and as such, the same value may appear in more than one CT report depending on the interpreting/reporting physicians. COMPARISON: None. FINDINGS: -CT Coronary Calcium Scoring- LMA= 0 LAD= 0 LCX= 0 RCA= 0 Total calcium score = 0 using the AJ-130 method. There is no identifiable calcification in the aortic wall, mitral annulus/valve, pericardium, myocardium. -Coronary CT Angiography- Coronary Arteries: The coronaries have normal origin and proximal course. The coronary arterial system is right dominant. Note: Stenosis is reported as maximum percentage diameter stenosis. Stenosis grading is reported using the following scheme. Quantitative Stenosis Grading: CAD-RADS 0: 0% - No visible stenosis CAD-RADS 1: 1-24% - Minimal stenosis CAD-RADS 2: 25-49% - Mild stenosis CAD-RADS 3: 50-69% - Moderate stenosis CAD-RADS 4A: 70-99% - Severe stenosis in 1-2 vessels CAD-RADS 4B: Left main >50%, or 3 vessel >70% CAD-RADS 5: 100% - Occluded Left Main: CAD-RADS 0 The left main bifurcates into the left anterior descending artery and left circumflex artery. LAD and Diagonals: CAD-RADS 0. Large vessel that gives off 1 diagonal and reaches the apex. No visible atherosclerotic disease. LCx and Obtuse Marginals: CAD-RADS 0 Large vessel that gives off a high OM and terminates as an AV Circ. No visible atherosclerotic disease RCA: CAD-RADS 0 Large dominant vessel that gives off RV marginal, PDA and PL branches. No visible atherosclerotic disease Non Coronary Cardiac Findings: Normal cardiac chamber size. No pericardial thickening or calcification. Normal interatrial and interventricular septum, atrioventricular valves, ventriculo-arterial valves, pulmonary veins and imaged central veins. Central and branch pulmonary arteries in the field of view are unremarkable. Thoracic aorta and imaged thoracic aortic branches in the field of view are unremarkable. Extra Cardiac Structures: Within the focused field of view, evaluation of the visualized thoracic and upper abdominal structures demonstrates no additional abnormalities. Procedure Note Godfrey Goins MD - 12/22/2024 CLINICAL INDICATION: 24 years Male Symptoms: Chest pain with clinical features suggesting myocardialischemia TECHNIQUE: Procedure Data Image Acquisition: Images were acquired at [facility] in [place], andinterpreted at [facility]. A 128-slice MDCT scanner ([employer]) was used for data acquisition. A non-contrast coronarycalcium scan was initially performed. was performed. Bolus tracking in theascending aorta with a threshold of 180HU. Immediately afterwards, ECGsynchronized Cardiac CT was then performed from cardiac base to apex usingretrospective gating with ECG tube current modulation. A total of 85 mLIsovue 370mg/mL contrast media was administered at 5 mL/sec followed by asaline flush using a biphasic injection protocol. A tube voltage of 120kVp was used. The patient received the following medications prior to the Cardiac CT:75mg of po metoprolol, 15mg of IV metoprolol, and 0.4mg sublingualnitroglycerin. The average heart rate at the time of acquisition was 70 bpm (64 bpm to 74bpm) and mildly irregular. Image Reconstruction: Transaxial images were reconstructed at 0.63 mm slice thickness. Data wasreviewed interactively on an advanced workstation (Consert) capable of 2and 3 dimensional displays in all conventional reconstruction formatsincluding multiplanar reformations, maximum intensity projections, curvedmultiplanar reformations, and volume rendered reconstructions. Selectedroutine images displaying relevant coronary anatomy and pathology weresaved and sent to PACS. Complications: None Technical Quality: Overall image quality is Average due to breathing motion artifact and highheart rate Coronary artery opacification is Adequate Total DLP (Dose-Length Product): 1743.4mGycm. (24.4 mSv) Please note: Thereported value represents the total of one or more individual componentsduring the CT acquisition on this date and at this time, and as such, thesame value may appear in more than one CT report depending on theinterpreting/reporting physicians. COMPARISON: None. FINDINGS: -CT Coronary Calcium Scoring- LMA= 0 LAD= 0 LCX= 0 RCA= 0 Total calcium score = 0 using the AJ-130 method. There is no identifiable calcification in the aortic wall, mitralannulus/valve, pericardium, myocardium. -Coronary CT Angiography- Coronary Arteries: The coronaries have normal origin and proximal course. The coronaryarterial system is right dominant. Note: Stenosis is reported as maximum percentage diameter stenosis.Stenosis grading is reported using the following scheme. Quantitative Stenosis Grading: CAD-RADS 0: 0% - No visible stenosis CAD-RADS 1: 1-24% - Minimal stenosis CAD-RADS 2: 25-49% - Mild stenosis CAD-RADS 3: 50-69% - Moderate stenosis CAD-RADS 4A: 70-99% - Severe stenosis in 1-2 vessels CAD-RADS 4B: Left main >50%, or 3 vessel >70% CAD-RADS 5: 100% - Occluded Left Main: CAD-RADS 0 The left main bifurcates into the left anteriordescending artery and left circumflex artery. LAD and Diagonals: CAD-RADS 0. Large vessel that gives off 1 diagonal andreaches the apex. No visible atherosclerotic disease. LCx and Obtuse Marginals: CAD-RADS 0 Large vessel that gives off a high OMand terminates as an AV Circ. No visible atherosclerotic disease RCA: CAD-RADS 0 Large dominant vessel that gives off RV marginal, PDA andPL branches. No visible atherosclerotic disease Non Coronary Cardiac Findings: Normal cardiac chamber size. No pericardial thickening or calcification. Normal interatrial and interventricular septum, atrioventricular valves,ventriculo-arterial valves, pulmonary veins and imaged central veins. Central and branch pulmonary arteries in the field of view areunremarkable. Thoracic aorta and imaged thoracic aortic branches in the field of vieware unremarkable. Extra Cardiac Structures: Within the focused field of view, evaluation of the visualized thoracicand upper abdominal structures demonstrates no additional abnormalities. IMPRESSION: 1. No coronary calcification with an Agatston score = 0 using the AJ-130method. 2. Normal coronary arteries 3. CAD-RADS 0: Management recommendations: Reassurance. Considernon- atherosclerotic causes of chest pain. 4. No significant non coronary cardiac findings in particular normalcardiac chambers, non-coronary vessels in the field of view andunremarkable pericardium. 5. Extracardiac structures in the field of view are unremarkable. CRITICAL RESULT: No. COMMUNICATION: Per this written report. Drafted by Godfrey Goins MD on 12/21/2024 11:49 AM Final report signed by Godfrey Goins MD on 12/22/2024 4:33 AM us Sarah Moore STENOGRAPHIC COURT REPORTER IMG CT PROCEDURES Final Resu lt documented in this encounter Visit Diagnoses Diagnosis Chest pain Unspecified chest pain documented in this encounter Care Teams Justice Court Judge Relationship Specialty Start Date End Date Pcp, No [address] [place] [address] PCP - General Family Medicine 12/08/24 documented as of this encounter
--- OUTSIDE RECORDS SUMMARY | 2024-12-25 07:58 | XMS_ITS | Continuity of Care Document ---
Author Organization [facility] Address [address] [place] [address] Phone Care Team Providers Care Template Layout Worker Name Role Phone Zafar STAPLETON, PULLER THROUGH, Paris Unavailable Unavai lable Allergies, Adverse Reactions, [...] Location Reason(s) For Visit Diagnoses Date Provider [facility], [address] [place], [address], tel:[phone] [facility] No Information Zafar Toledo. [address] [place] [address], [id number] , . tel:[phone] [facility], [address] [place], [address], tel:[phone] [facility] ER Follow up (chief complaint)Pos sible anal Fistula (chief complaint) Body mass index [BMI] 25.0-25.9, adultPalpitationsChron ic anal fissure 5 Stephen Paris. [address] [place], [place], [id number] , . tel: [phone] [facility], [address] [place] [address], [facility], tel:[phone] [facility] f/u medication (chief complaint) Generalized Anxiety DisorderMajor depressive disorder, recurrent, mildBody mass index [BMI] 25.0-25.9, adult Aug- 5 Stephen Paris. [address] [place], [place], [id number] , . tel: [phone] [facility], [address] [place] [address], [facility], tel:[phone] [facility] Follow up on Medication (chief complaint) Body mass index [BMI] 24.0-24.9, adultGeneralized Anxiety DisorderMajor depressive disorder, recurrent, mildVitamin B12 deficiencyEncounter for HIV pre-exposure prophylaxis 5 Stephen Paris. [address] [place] [address], [id number] , . tel: [phone] [facility], [address] [place] [address], [facility], tel:[phone] [facility] FMLA papers/accomm odation request (chief complaint) Stress, not elsewhere classifiedGeneralized Anxiety DisorderEncounter for issue of other medical certificate 5 Stephen Paris. [address] [place] [address], [id number] , . tel: [phone] [facility], [address] [place] [address], [facility], tel:[phone] [facility] [place] fasting labs (chief complaint)anx iety issues (chief complaint) Vitamin B12 deficiencyGeneralized Anxiety DisorderMajor depressive disorder, recurrent, mildEncounter for immunizationBody mass index [BMI] 25.0-25.9, adult Fe 5 Stephen Paris. [address] [place], [place], [id number] , [place]. tel:[phone] [facility], [address] [place] [address], [facility], tel:[phone] [facility] No Information 4 Stephen Paris. [address], [place], [id number] , [place]. tel:[phone] [facility], [address] [place] [address], [facility], tel:[phone] [facility] No Information 4 Albert Moncada. [address] [place], [place], [id number] , . tel:[phone] [facility], [address] [place] [address], [facility], tel:[phone] [facility] [place] Fatigue (chief complaint)Con cerned about sleep apnea. (chief complaint)sor e throat (chief complaint) FatigueApnea, not elsewhere classifiedPharyngitisS noringBody mass index [BMI] 24.0-24.9, adultEncounter for screening for COVID-19 4 Stephen Paris. [address], [place], [id number] , [place]. tel:[phone] [facility], [address] [place] [address], [facility], [place] tel:[phone] [facility] B12 Injection (chief complaint) Vitamin B12 deficiency 4 Stephen Paris. [address], [place], [id number] , [place]. tel: [phone] [facility], [address] [place] [address], [facility], tel:[phone] [facility] [place] B12 INJECTION (chief complaint) Vitamin B12 deficiency September-3 0-202 4 Stephen Paris. [address] [place], [place], [id number] , [place]. tel: [phone] [facility], [address] [place] [address], [facility], tel:[phone] [facility] b12 injection (chief complaint) Vitamin B12 deficiency September-2 1- 4 Stephen Paris. [address] [place], [place], [id number] , . tel: [phone] [facility], [address] [place] [address], [facility], tel:[phone] [facility] F/u on testing (chief complaint)b12 injection # 3 of 6 (chief complaint)kym h on rt wrist (chief complaint) Body mass index [BMI] 22.0-22.9, adultTachycardia, unspecifiedVitamin B12 deficiencyRash September-1 4-202 4 Stephen Paris. [address], [place], [id number] , [place]. tel: [phone] [facility], [address] [place] [address], [facility], [place] tel:[phone] [facility] [place] B12 INJECTION (chief complaint) Vitamin B12 deficiency September-0 7-202 4 Stephen Paris. [address] [place], [place], [id number] , [place]. tel: [phone] [facility], [address] [place] [address], [facility], [place] tel:[phone] [facility] f/u labs (chief complaint) PalpitationsVitamin B12 deficiencyBody mass index [BMI] 22.0-22.9, adultGeneralized Anxiety Disorder Apr-3 4 Stephen Paris. [address], [place], [id number] , [place]. tel:[phone] [facility], [address] [place], [address], [place] tel:[phone] [facility] Establishing Care (chief complaint) Extreme povertyUnemployment, unspecifiedEncounter for screening for diseases of the blood and blood-forming organs and certain disorders involving the immune mechanismBody mass index [BMI] 21.0-21.9, adultGeneralized Anxiety DisorderMajor depressive disorder, recurrent, mildEncounter for screening for diabetes mellitusEncounter for screening for human immunodeficiency virus [HIV]Encounter for screening for other viral diseases Apr- 4 Albert Moncada. [address] [place], [place], [id number] , [place]. tel:[phone] Family History Family Member Type Diagnosis Age [...] Insurance type Covered democrat ID Authoriza tion(s) [place] [employer] [facility] [id number] [facility]- [facility] [employer] [place] [id number] [facility] Aet[employer] Wrap Payer [id number] [place] [employer] [facility] [id number] [facility] [place]cbs BL [id number] [facility] [place] Wrap Payer [id number] 1 [place] [employer] [facility] [id number] [facility]- [facility] [place] Bc[employer] BL [id number] [facility]- [facility] [place] Wrap Payer [id number] 1 Social History Type Description Quantity Date [...] due Goal Obtain Height, Weight, and B LA. Due on due Goal Vitamin D. Due [...] due Goal Obtain Height, Weight, and B LA. Due on due Goal Depression screening. Due [...] due Goal Obtain Height, Weight, and B LA. Due on due Goal HIV screen due [...] due Goal Obtain Height, Weight, and B LA. Due on due Goal Unhealthy drug use screening due Goal CBC. Due on due Goal Hepatitis C Screening due Goal Tobacco Use Screening. Due o n due Goal Hepatitis C Screening due Goal Obtain Height, Weight, and B LA. Due on due Goal Vitamin D. Due [...] due Goal Obtain Height, Weight, and B LA. Due on due Goal Follow up Plan f or abnormal BMI (Less than 18.5, greater than 25). Due on due Goal Vitamin B12. Due on due Goal Lipid panel. Due on due Goal Obtain Height, Weight, and B LA. Due on due Goal Influenza vaccine. Due [...] due Goal Obtain Height, Weight, and B LA. Due on due Goal Hepatitis C Screening [...] due Goal Obtain Height, Weight, and B LA. Due on due Goal Vitamin B12. Due [...] due Goal Obtain Height, Weight, and B LA. Due on due Goal CBC. Due on [...] due Goal Obtain Height, Weight, and B LA. Due on due Goal Tobacco Use Screening. Due o n due Goal HIV screen due Goal Tobacco Use Cess ation Counseling. Due on due Goal Diabetes screening. Due on A due Goal Vitamin D. Due on due Goal CMP. Due on due Goal Drug Abuse Scree suemet Test (DAST-10). Due on due Goal Generalized Anxi ety Disorder - 7 (NICOLE-7). Due on due Goal Vitamin B12. Due on 025 due Goal Lifestyle education regardin g diet [...] due Goal Obtain Height, Weight, and B LA. Due on due Goal Generalized Anxi ety Disorder - 7 (NICOLE-7). Due on due Goal Depression screening. Due on due Goal Obtain Height, Weight, and B LA. Due on due Goal CMP. Due on [...] due Goal Obtain Height, Weight, and B LA. Due on due Referral Ordered: Referrals: Cardiology. Evaluate and treat Appointment date/timeframe: 12/03/2024 ordered Referral Referred To: April Yo APRN [address] [place], [place], [id number] Ordered: Referrals: Psychiatry. April Yo APRN. Location: [facility]. Evaluate and treat Appointment date/timeframe: 08/28/2024 ordered [facility]dered: [facility] Location: [place]. Evaluate and treat Appointment date/timeframe: 04/30/2024 ordered Referral Referred To: [facility] Ordered: Referrals: Cardiology. [facility]. Location: [place]. Diagnostic testing Appointment date/timeframe: 1 Day ordered Appointment Lc Greenberg - Vida (Iwona ramos) BOOKED History Of Present Illness Encounter Date Complaint History Of Prese nt Illness ER Follow up Lc is here today to follow up from an ER visit. Suraj was in the ER on 11.18.24 at [facility] for chest pain. Pt was diagnosed [...] would like to have referral to [facility] for medication management w/ April Yo APRN.He [...] will repeat labs in 6 monthsbaseline labs [facility] papers/accommodation reques t Lc is here [...] higher risk for accidents. 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 He reports at least two panic attacks last week causing chest tightness and hyperventilation, where he has had to sit for a while to regain control of his anxiety. He reports it is so bad he is considering changing positions at [employer]. When his panic is so bad [...] mg - previously written by Emiliana Lai, behavioral health care coordinator at [facility], has not been working as well. [...] higher risk for accidents. 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 He reports at least two panic attacks last week causing chest tightness and hyperventilation, where he has had to sit for a while to regain control of his anxiety. He reports it is so bad he is considering changing positions at [employer]. End of Feb, grandfather and sister [...] he is feeling better since starting the [employer] races at times when he has heightened [...] sent to pharmacy and he confirms is [id number] 340- reports low energy- will start a 6 week series of b12 injections. Encouraged low fat, vitamin rich dietTotal Cholesterol 202LDL 131HDL 49 and Trigs 99Today he states he was started on Prozac 20 mg for his anxiety/depression [facility] he is doing ok with medicationHe would like therapy here at [facility]- referral made todayHe states he mental clarity [...] if indicated. Related to Vitamin B12 deficiency Take medications as prescribed. Follow a sleep [...] to tolerate. Related to Generalized Anxiety Disorder Risks and benefits d iscussed Prep sent [...] adult; and Caloric intake should be around 9016-3768 for a female, and 3758-6344 for an adult male. Fiber intake should [...] are recommend to be 13-30 grams each. [employer] is a good source for meal planning and dietary education. You may also refer to the [place] [employer] website for further low sodium, [...] as instructedReferral made for therapy to [facility] Related to Generalized Anxiety Disorder Patient instructed t hat any chest pain or discomfort lasting longer than 5 minutes warrants an urgent emergency room evaluation. Patient verbalized understanding. Holter Monitor has been ordered for you to go and picker machine operator at [facility]. Wear the monitor for 72 hrs [...] diet, body weight. Follow a low calorie (1362-8647 calories/day depending on activity levels) to achieve [...]
--- OUTSIDE RECORDS SUMMARY | 2025-01-29 15:45 | XMS_ITS | Encounter Summary ---
Author Organization Healthcare Address [address] [place] [address] Care Team Providers Care Rail Assembler Name Role Phone Pcp, No Primary Care Provider Unavailabl e Encounter Details Date Type Department Care Team ([facility] st Contact Info) Description 11/18/2024 Orders Only External Location [address] [place] [address] Provider, External Social History Tobacco Use Types [...] on filedocumented in this encounter Care Teams Rail Assembler Relationship Specialty Start Date End Date Pcp, No [address] [place] [address] PCP - General Family Medicine 12/08/24 documented as of this encounter
--- OUTSIDE RECORDS SUMMARY | 2025-01-29 15:45 | XMS_ITS | Clinical Summary ---
Author Organization [facility] Address [address] [place] [address] Phone [email or web address] Care Team Providers Care English Drawer Name Role Phone Unavailable Primary Care Provider Unavailabl e Allergies No known active allergies Medications tadalafil (CIALIS) 5 MG tablet Take 5 mg by mouth 1 (one) time each day. 04/27/2024 Active ergocalciferol (VITAMIN D2) 1.25 MG (37533 UT) capsule TAKE 1 CAPSULE BY MOUTH [...] Description 11/20/2024 4:00 PM EDT Clinical Support [facility] [address] [place] [address] Dana Rivera, RN Return to work evaluation (Primary Dx) 11/19/2024 Telephone [address] [place] [address] No, Pcp 11/17/2024 8:30 PM EDT Clinical Support [facility] [address] [place] [address] Luana Miranda PA Chest pain, unspecified type (Primary Dx); Dizziness; Tonsillitis 11/02/2024 Documentation [facility] [address] [place] [address] Arsen Roca from Last 3 [...] on file 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
--- OUTSIDE RECORDS SUMMARY | 2025-01-29 15:45 | XMS_ITS | Encounter Summary ---
Author Organization Healthcare Address [address] [place] [address] Care Team Providers Care Geophysical Manager Name Role Phone Pcp, No Primary Care Provider Unavailabl e Encounter Details Date Type Department Care Team ([facility] st Contact Info) Description 11/18/2024 Orders Only External Location [address] [place] [address] Provider, External Social History Tobacco Use Types [...] on filedocumented in this encounter Care Teams Geophysical Manager Relationship Specialty Start Date End Date Pcp, No [address] [place] [address] PCP - General Family Medicine 12/08/24 documented as of this encounter
--- OUTSIDE RECORDS SUMMARY | 2025-01-29 15:45 | XMS_ITS | Encounter Summary ---
Author Organization Healthcare Address [address] [place] [address] Care Team Providers Care Mdm Developer Name Role Phone Pcp, No Primary Care Provider Unavailabl e Encounter Details Date Type Department Care Team ([facility] st Contact Info) Description 12/21/2024 Orders Only External Location [address] [place] [address] Sarah Moore, JENAE [address] [facility] [address] [id number] Social History Tobacco Use Types Packs/Day Years [...] on filedocumented in this encounter Care Teams Mdm Developer Relationship Specialty Start Date End Date Pcp, No [address] [place] [address] PCP - General Family Medicine 12/08/24 documented as of this encounter
--- OUTSIDE RECORDS SUMMARY | 2025-01-29 15:45 | XMS_ITS | Clinical Summary ---
Author Organization Healthcare Address [address] [place] [address] Care Team Providers Care Meeting Planner Name Role Phone Pcp, No Primary Care Provider Unavailabl e Encounters Date Type Department Care Team Description 12/21/2024 10:45 AM EDT Ancillary Procedure [address] [place] [address] Chest pain 12/21/2024 Orders Only External Location [address] [place] [address] Sarah Moore, [employer] 11/18/2024 Orders Only External Location [address] [place] [address] Provider, External 11/18/2024 Orders Only External Location [address] [place] [address] Provider, External from Last 3 [...] of 3 - 19+ 3-dose series) 2018 [id number] Vaccine (1 - 20 24-25 season) 2024 [...] Data Image Acquisition: Images were acquired at [facility] in [place], and interpreted at [facility]. A 128-slice MDCT scanner (1EQa View) was used for data acquisition. A [...] was reviewed interactively on an advanced workstation (Lectorati) capable of 2 and 3 dimensional displays [...] Data Image Acquisition: Images were acquired at [facility] in [place], andinterpreted at [facility]. A 128-slice MDCT scanner (NeuroDerm) was used for data acquisition. A non-contrast [...] Data wasreviewed interactively on an advanced workstation (Lectorati) capable of 2and 3 dimensional displays in [...] from Last 3 Months Insurance Care Teams Meeting Planner Relationship Specialty Start Date End Date Pcp, [place] [address] PCP - General Family Medicine 12/08/24
--- NOTE | 2025-01-29 16:00 | MR_ITS ---
PROCEDURE INFORMATION: Exam: MR Head Without and With Contrast Exam date and time: 01/29/2025 3:51 PM Age: 24 years old Clinical indication: Dizziness; Additional info: Dizziness, lethargic, recent chairi malformation diagnosis TECHNIQUE: Imaging protocol: Magnetic resonance imaging of the head without and with contrast. Contrast material: PROHANCE; Contrast volume: 18 ml; Contrast route: IV; COMPARISON: No relevant prior studies available. FINDINGS: Brain: There is a Chiari malformation measuring 7 mm. There is no evidence of acute parenchymal hemorrhage, extra-axial collection, or acute infarction. There is no mass effect, midline shift, or downward herniation. The white matter appears normal. There is no pathologic enhancement. Cerebral ventricles: Normal. No ventriculomegaly. Bones: Unremarkable. Paranasal sinuses: There is mild paranasal sinus mucosal thickening. Mastoid air cells: Normal as visualized. No mastoid effusion. Orbital cavities: Unremarkable. Soft tissues: Unremarkable. IMPRESSION: Mild Chiari malformation. Otherwise unremarkable appearance of the brain.
[2025-01-29] MEDS: SODIUM CHLORIDE 0.9% 10ML SYR (RAD ONLY) 10 ML IV (16:32)
[2025-01-29] MEDS: GADOTERIDOL INJ 20ML SYRINGE 18 ML IV (16:32)
== END 2025-01-29 23:59 | disposition home or self-care (01) ==
LOC: RAD 15:44
PROVIDERS: PCP Nurse Practitioner Family; Visit Provider Specialist
DX: G93.5 Compression of brain (principal); R55 Syncope and collapse
CPT/HCPCS: 70553; A9576